=== PATIENT | male | born 1945 | race Caucasian/White ===

== ENCOUNTER 2017-09-27 20:34 | Observation (INO) ==
--- NOTE | 2017-09-27 21:08 | Emergency Department Note ---
Disposition Clinical Impression: Cardiac dysrhythmia Qualifiers: Arrhythmia type: other cardiac arrhythmia Qualified Code(s): I49.8 - Other specified cardiac arrhythmias Disposition: Still a Patient Referrals: Lola Whiteside CNP [Primary Care Provider] - General Adult HPI - General Chief complaint: ED Shortness of Breath/Dyspnea Stated complaint: SHANNON Time Seen by Provider: 09/27/17 20:42 Source: patient - History of Present Illness Pain Scale: 0 - Related Data Home Medications Medication Instructions Recorded Confirmed Aspirin Enteric Coated [Aspirin EC] 81 mg PO QAM 01/24/15 09/22/17 Lisinopril [Zestril] 10 mg PO QAM 01/24/15 09/22/17 Lovastatin [Mevacor] 40 mg PO QAM 01/24/15 09/22/17 Omeprazole [PriLOSEC] 20 mg PO QAM 01/24/15 09/22/17 Albuterol Sulfate [Ventolin Hfa] 2 puff IH Q4H PRN 09/15/17 09/22/17 Cilostazol [Pletal] 100 mg PO BID 09/15/17 09/22/17 Clopidogrel [Plavix] 75 mg PO DAILY 09/15/17 09/22/17 Diltiazem CD (24hr) [Cardizem CD] 240 mg PO DAILY 09/15/17 09/22/17 Fluticasone/Salmeterol [Advair 1 puff IH BID 09/15/17 09/22/17 250-50 Diskus] Glimepiride [Amaryl] 2 mg PO DAILY 09/15/17 09/22/17 Liraglutide [Victoza 3-Rich] 1.2 unit IJ DAILY 09/15/17 09/22/17 Sitagliptin Phosphate [Januvia] 50 mg PO DAILY 09/15/17 09/22/17 Tamsulosin HCl [Flomax] 0.4 mg PO DAILY 09/15/17 09/22/17 amLODIPine [Norvasc] 5 mg PO DAILY 09/15/17 09/22/17 Previous Rx's Medication Instructions Recorded Metoprolol [Lopressor] 25 mg PO BID #60 tablet 02/06/15 Ticagrelor [Brilinta] 90 mg PO BID #60 tablet 02/06/15 Clindamycin [Cleocin] 150 mg PO Q6HR #20 capsule 09/15/17 HYDROcodone/Acet 7.5/325 mg [[place] 1 tab PO Q4-6H PRN 7 Days #25 09/15/17 7.5-325 mg] tablet Allergies Allergy/AdvReac Type Severity Reaction Status Date / Time Penicillins Allergy Rash Verified 09/22/17 11:01 Past Medical History - Past Medical History Medical history: Reports: arthritis, cancer, COPD, coronary artery disease, diabetes, hyperlipidemia, hypertension, myocardial infarction, renal disease Surgical history: Reports: angioplasty/stent Psychiatric history: Reports: no psych history - Social History Smoking Status: Former smoker Smokeless Tobacco Status: No Alcohol use: Reports: none Drug use: Reports: none Physical Exam - General General appearance: alert, in no apparent distress Course - Reevaluation(s) Reevaluation #1: Attestation Note I examined this patient and my medical decision-making was reviewed with the Resident Physician, LISA BURNS. I agree with the documented findings, disposition and treatment plan as described except to the extent set forth below. I have personally performed a face to face evaluation on this patient. I have reviewed and agree with the care plan. Briefly: 71-year-old male status post a polypectomy by Dr. Kay from ENT about [address] Kay after getting an EKG preoperatively stated that he needed "a pacemaker the next day". He was unable to follow up on. He learned that his polyp was cancerous and has gone to the [facility] instead of seeing cardiology. Patient complains of some shortness of breath. He has some dropped beats here. He is awake and alert GCS 15. Physical examination is essentially benign. Patient will undergo lab work and imaging and admission is anticipated. Disposition pending Time: 21:06 Vital Signs Temperature 97.7 F 09/27/17 20:36 Pulse Rate 89 09/27/17 20:36 Respiratory Rate 20 09/27/17 20:36 Blood Pressure 156/72 09/27/17 20:36 O2 Sat by Pulse Oximetry 97 09/27/17 20:36 Temperature 97.7 F 09/27/17 20:36 Pulse Rate 89 09/27/17 20:36 Respiratory Rate 20 09/27/17 20:36 Blood Pressure 156/72 09/27/17 20:36 O2 Sat by Pulse Oximetry 97 09/27/17 20:36 Oxygen Delivery Oxygen Delivery Room Air
--- NOTE | 2017-09-27 21:14 | Emergency Department Note ---
Disposition Clinical Impression: Mobitz (type) II atrioventricular block, Dizziness Disposition: Admitted As Inpatient Condition: Good Referrals: Lola Whiteside CNP [Primary Care Provider] - Forms: ED Satisfaction Letter SOB HPI - General Chief Complaint: ED Shortness of Breath/Dyspnea Stated Complaint: SHANNON Time Seen by Provider: 09/27/17 20:42 Source: patient Mode of arrival: private vehicle Limitations: no limitations Nursing Notes Reviewed: Yes Vital Signs Reviewed: Yes - History of Present Illness 71-year-old male history of coronary artery disease with 3 stents, atrial fibrillation, hypertension, hyperlipidemia, COPD, obstructive sleep apnea, laryngeal cancer who presents to the ER due to lightheadedness as well as shortness of breath. Patient reports intermittent lightheadedness for the last week in duration. States that it happens intermittently. No syncopal episodes. He was recently operated on for a laryngeal mass which she was told was cancer. He states during that time he did an EKG and he was told he needed a pacemaker placed. He scheduled an appointment for the next day however he was unable to go. He denies any chest pain. No recent illnesses. No other complaints. Pt Subjective Complaint: shortness of breath Onset (ago): day(s) Improves with: nothing Worsens with: nothing Known history of: COPD Associated symptoms: Reports: cough. Denies: chest pain, fever Treatment prior to arrival: none Cough present: No - Related Data Home oxygen amount: none Home Medications Medication Instructions Recorded Confirmed Aspirin Enteric Coated [Aspirin EC] 81 mg PO QAM 01/24/15 09/22/17 Lisinopril [Zestril] 10 mg PO QAM 01/24/15 09/22/17 Lovastatin [Mevacor] 40 mg PO QAM 01/24/15 09/22/17 Omeprazole [PriLOSEC] 20 mg PO QAM 01/24/15 09/22/17 Albuterol Sulfate [Ventolin Hfa] 2 puff IH Q4H PRN 09/15/17 09/22/17 Cilostazol [Pletal] 100 mg PO BID 09/15/17 09/22/17 Clopidogrel [Plavix] 75 mg PO DAILY 09/15/17 09/22/17 Diltiazem CD (24hr) [Cardizem CD] 240 mg PO DAILY 09/15/17 09/22/17 Fluticasone/Salmeterol [Advair 1 puff IH BID 09/15/17 09/22/17 250-50 Diskus] Glimepiride [Amaryl] 2 mg PO DAILY 09/15/17 09/22/17 Liraglutide [Victoza 3-Rich] 1.2 unit IJ DAILY 09/15/17 09/22/17 Sitagliptin Phosphate [Januvia] 50 mg PO DAILY 09/15/17 09/22/17 Tamsulosin HCl [Flomax] 0.4 mg PO DAILY 09/15/17 09/22/17 amLODIPine [Norvasc] 5 mg PO DAILY 09/15/17 09/22/17 Previous Rx's Medication Instructions Recorded Metoprolol [Lopressor] 25 mg PO BID #60 tablet 02/06/15 Ticagrelor [Brilinta] 90 mg PO BID #60 tablet 02/06/15 Clindamycin [Cleocin] 150 mg PO Q6HR #20 capsule 09/15/17 HYDROcodone/Acet 7.5/325 mg [[place] 1 tab PO Q4-6H PRN 7 Days #25 09/15/17 7.5-325 mg] tablet Allergies Allergy/AdvReac Type Severity Reaction Status Date / Time Penicillins Allergy Rash Verified 09/22/17 11:01 All systems ED: reviewed and negative except as stated. Constitutional: Denies: fever Cardiovascular: Denies: chest pain Respiratory: Reports: dyspnea. Denies: cough Gastrointestinal: Denies: abdominal pain, nausea, vomiting Neurological: Reports: other (Lightheaded) Past Medical History - Past Medical History Attestation: Yes The following information was validated with the patient. Source: patient Medical history: Reports: arthritis, cancer, COPD, coronary artery disease, diabetes, hyperlipidemia, hypertension, myocardial infarction, renal disease Surgical history: Reports: angioplasty/stent Psychiatric history: Reports: no psych history - Social History Smoking Status: Former smoker Smokeless Tobacco Status: No Alcohol use: Reports: none Drug use: Reports: none Physical Exam - General Limitations: no limitations General appearance: alert, in no apparent distress - Head Head exam: atraumatic, normocephalic - Eye Eye exam: Present: normal appearance - ENT ENT exam: normal exam - Neck Neck exam: Present: normal inspection, full ROM - Chest Chest inspection: Present: normal inspection, symmetric chest wall rise - Respiratory Respiratory exam: Present: normal lung sounds bilaterally - Cardiovascular Cardiovascular exam: Present: regular rate, normal rhythm, normal heart sounds, other (Dropping beats) - Abdominal Exam Abdominal exam: Present: soft, Non-Tender. Absent: tenderness - Extremities Exam Extremities exam: Present: normal inspection, full ROM - Expanded Upper Extremity Exam Shoulder exam: Present: normal inspection, full ROM Arm exam: Present: normal inspection, full ROM Elbow exam: Present: normal inspection, full ROM Forearm/Wrist exam: Present: normal inspection, full ROM Hand exam: Present: normal inspection, full ROM - Expanded Lower Extremity Exam Hip/Pelvis exam: Present: normal inspection, full ROM Upper leg exam: Present: normal inspection, full ROM Knee exam: Present: normal inspection, full ROM Lower leg exam: Present: normal inspection, full ROM Ankle exam: Present: normal inspection, full ROM Foot/toe exam: Present: normal inspection, full ROM - Neurological Exam Neurological exam: Present: other (Alert, GCS 15, nonfocal.) - Skin Skin exam: Present: warm, dry Course Course Narrative: Patient seen and examined. Rhythm strip demonstrates Mobitz type II. We will get an EKG, chest x-ray as well as labs including troponin. Cardiology consultation and admission. - Reevaluation(s) Reevaluation #1: Discussed results of findings including imaging labs with the patient and family. Agreeable with being admitted. - Consultations Consultation #1: I spoke with the on-call screener perfumer Dr. Glynn. Discussed the patient's history EKG imaging and labs. He is currently hemodynamically stable with a normal blood pressure. Request cardiology consultation and hospitalist admission. Vital Signs Temperature 97.7 F 09/27/17 20:36 Pulse Rate 89 09/27/17 20:36 Respiratory Rate 20 09/27/17 20:36 Blood Pressure 156/72 09/27/17 20:36 O2 Sat by Pulse Oximetry 97 09/27/17 20:36 Temperature 97.7 F 09/27/17 20:36 Pulse Rate 68 09/27/17 22:26 Respiratory Rate 16 09/27/17 22:26 Blood Pressure 125/67 09/27/17 22:26 O2 Sat by Pulse Oximetry 95 09/27/17 22:26 Oxygen Delivery Oxygen Delivery Room Air Shortness of Breath/Dyspnea - MDM Narrative Medical decision making narrative: 71-year-old male with dizziness for one week as well as shortness of breath. He was told he needed a pacemaker 1 week ago. He was unable to go and also was recently diagnosed with laryngeal cancer. EKG demonstrates Mobitz type II. Hemodynamically stable. Cardiology consulted. Admitted to the hospitalist service. - Lab Data Lab results reviewed: Yes I reviewed the patient's lab results. Result diagrams: 09/27/17 20:58 09/27/17 20:58 Lab Results 09/27/17 09/27/17 09/27/17 Range/Units 20:58 20:58 20:58 WBC 11.2 H (4.3-11.1) K/mcL RBC 4.35 (4.19-5.50) M/mcL Hgb 12.9 (12.9-16.9) g/dL Hct 35.9 L (37.5-50.1) % MCV 82.5 L (83.0-100.0) fL MCH 29.7 (28.0-33.3) pg MCHC 35.9 H (31.6-35.5) g/dL RDW 14.6 H (11.5-14.5) % Plt Count 289 (140-400) K/mcL MPV 10.4 (9.4-12.4) fL Immature Gran % 1.7 (0-4) % Seg Neutrophils % 76.2 % Lymphocytes % 14.5 % Monocytes % 5.6 % Eosinophils % 1.4 % Basophils % 0.6 % Neutrophils # 8.6 (1.6-8.9) K/mcL Lymphocytes # 1.6 (0.6-4.6) K/mcL Monocytes # 0.6 (0.0-1.3) K/mcL Eosinophils # 0.2 (0.0-0.6) K/mcL Basophils # 0.1 (0.0-0.2) K/mcL PT 11.9 (9.4-12.1) Seconds INR 1.1 Sodium 136 (136-145) mEq/L Potassium 3.8 (3.5-5.1) mEq/L Chloride 109 H (98-107) mEq/L Carbon Dioxide 18 L (23-29) mEq/L BUN 15 (8-23) mg/dL Creatinine 1.41 H (0.70-1.30) mg/dL Est GFR ( Amer) 60 (> 60) Est GFR (Non-Af Amer) 49 L (> 60) BUN/Creatinine Ratio 11 (6-26) Glucose 134 H (70-105) mg/dL Calculated Osmolality 285 (280-300) Calcium 9.8 (8.6-10.3) mg/dL Troponin I < 0.03 (< 0.04) ng/mL B-Natriuretic Peptide (Less than 100) pg/mL 09/27/17 Range/Units 20:58 WBC (4.3-11.1) K/mcL RBC (4.19-5.50) M/mcL Hgb (12.9-16.9) g/dL Hct (37.5-50.1) % MCV (83.0-100.0) fL MCH (28.0-33.3) pg MCHC (31.6-35.5) g/dL RDW (11.5-14.5) % Plt Count (140-400) K/mcL MPV (9.4-12.4) fL Immature Gran % (0-4) % Seg Neutrophils % % Lymphocytes % % Monocytes % % Eosinophils % % Basophils % % Neutrophils # (1.6-8.9) K/mcL Lymphocytes # (0.6-4.6) K/mcL Monocytes # (0.0-1.3) K/mcL Eosinophils # (0.0-0.6) K/mcL Basophils # (0.0-0.2) K/mcL PT (9.4-12.1) Seconds INR Sodium (136-145) mEq/L Potassium (3.5-5.1) mEq/L Chloride (98-107) mEq/L Carbon Dioxide (23-29) mEq/L BUN (8-23) mg/dL Creatinine (0.70-1.30) mg/dL Est GFR ( Amer) (> 60) Est GFR (Non-Af Amer) (> 60) BUN/Creatinine Ratio (6-26) Glucose (70-105) mg/dL Calculated Osmolality (280-300) Calcium (8.6-10.3) mg/dL Troponin I (< 0.04) ng/mL B-Natriuretic Peptide 24 (Less than 100) pg/mL - Radiology Data Radiology results reviewed: Yes I reviewed the patient's radiology results. Chest X-Ray 09/27/17 21:15 IMPRESSION: No acute abnormality. D/ / Donnie Mcgregor MD / Donnie Mcgregor MD Interpreting Provider: Donnie Mcgregor MD - EKG Data EKG attestation: Yes I reviewed and interpreted this EKG. EKG results narrative: EKG demonstrates sinus rhythm with prolonged MN interval with a rate of 81 bpm. Left axis deviation. Drop beat with type II Mobitz. No gross ST elevations or depressions. No acute ischemic findings. S.B.A.R. - S.B.A.R. Situation: Demographics, MOA Background: Presenting Complaint, Relevant PMH, Meds, & Allergies Assessment: Course and respsone to treatment, Exam Concerns, Patient/Family Expectation, Pertinant Lab Results Recommendation: Barrier(s) to disposition, Recommendation based on pending studies, treatments, or consults S.B.A.R. Report Given to: Dr. Belle
[2017-09-27 21:24] LABS: Basophils # 0.1 K/mcL (0.0-0.2); Basophils % 0.6 %; Eosinophils # 0.2 K/mcL (0.0-0.6); Eosinophils % 1.4 %; Hematocrit 35.9 % (37.5-50.1); Hemoglobin 12.9 g/dL (12.9-16.9); Immature Granulocytes % 1.7 % (0-4); Lymphocytes # 1.6 K/mcL (0.6-4.6); Lymphocytes % 14.5 %; Mean Corpuscular HGB Conc 35.9 g/dL (31.6-35.5); Mean Corpuscular Hemoglobin 29.7 pg (28.0-33.3); Mean Corpuscular Volume 82.5 fL (83.0-100.0); Mean Platelet Volume 10.4 fL (9.4-12.4); Monocytes # 0.6 K/mcL (0.0-1.3); Monocytes % 5.6 %; Neutrophils # 8.6 K/mcL (1.6-8.9); Platelet Count 289 K/mcL (140-400); Red Blood Count 4.35 M/mcL (4.19-5.50); Red Cell Distribution Width 14.6 % (11.5-14.5); Segmented Neutrophils % 76.2 %
[2017-09-27 21:29] LABS: INR 1.1; Prothrombin Time 11.9 Seconds (9.4-12.1)
[2017-09-27 21:45] LABS: BUN/Creatinine Ratio 11 (6-26); Blood Urea Nitrogen 15 mg/dL (8-23); Calcium 9.8 mg/dL (8.6-10.3); Carbon Dioxide 18 mEq/L (23-29); Chloride 109 mEq/L (98-107); Glucose 134 mg/dL (70-105); Osmolality,Calculated 285 (280-300); Potassium 3.8 mEq/L (3.5-5.1); Sodium 136 mEq/L (136-145); eGFR For African Americans 60 (> 60); eGFR For Non-African Americans 49 (> 60)
[2017-09-27 21:47] LABS: Troponin I < 0.03 ng/mL (< 0.04)
--- NOTE | 2017-09-27 23:05 | Internal Med History&Physical ---
<Feliberto Theodore - Last Filed: 09/27/17 23:55> Date of Encounter: 09/27/17 Time of Encounter: 23:04 Internal Medicine - H&P: HPI Chief complaint: Dizziness Admitted From: Emergency Dept History of present illness: Mr. Mar is a 71 year old male with history of coronary artery disease with 3 stents, atrial fibrillation, hypertension, hyperlipidemia, COPD, obstructive sleep apnea, laryngeal cancer presented to the emergency department tonight due to lightheadedness as well as shortness of breath. After the emergency department did the workup they diagnosed patient with a Mobitz type II heart block. Patient states the symptoms he had leading up to this event were increased dizziness as well as increasing shortness of breath. He never did complain of any chest pain. Said the dizziness only occurred when he stood up. He never had a syncopal episode did not fall and hit his head. Said the shortness of breath to be worse at night although patient does use a CPAP machine every night due to his VENKATESH and COPD. Does have 120 pack year smoking history. He did quit 3 years ago after he had his 3 stents placed in 2014. Patient said he did come to the emergency department approximately 2 weeks ago due to having trouble swallowing there they did a scope and found a laryngeal mass which he was told was cancer. He states during that time they did an EKG and told him that he needed a pacemaker. He scheduled an appointment with cardiology but was unable to go to a due to this new diagnosis of cancer patient felt like the cancer was more beneficial to be worked up in his pacemaker placement. He is unsure what diagnosis he had when he was told to get the pacemaker. He has no other recent illnesses. Patient otherwise has no complaints today. Past Med Surg Social Fam HX - Past Medical History Medical history: arthritis, cancer, COPD, coronary artery disease, diabetes, hyperlipidemia, hypertension, myocardial infarction, renal disease Psychiatric history: no psych history - Past Surgical History Surgical History: angioplasty/stent - Social History Smoking Status: Former smoker Smokeless Tobacco Status: No Alcohol use: none Drug use: none - Family History Father Living Status: Hx Family Cardiac Disorders: No Hx Family Respiratory Disorders: No Hx Family Cancer: No Hx Family GI Disorders: No Hx Family Endocrine Disorder: No Hx Family Neuromuscular Disorders: No Hx Family Neurologic Disorders: No Hx Family HEENT Disorders: No Hx Family Autoimmune Disorders: No Mother Living Status: Hx Family Cardiac Disorders: Yes (Heart attack, hypertension) Hx Family Respiratory Disorders: No Hx Family Cancer: No Hx Family GI Disorders: No Hx Family Endocrine Disorder: Yes (diabetes) Hx Family Neuromuscular Disorders: No Hx Family Neurologic Disorders: No Hx Family HEENT Disorders: No Hx Family Autoimmune Disorders: No Internal Medicine - H&P: Meds Aspirin Enteric Coated [Aspirin EC] 81 mg PO QAM 01/24/15 [History] Lisinopril [Zestril] 10 mg PO QAM 01/24/15 [History] Lovastatin [Mevacor] 40 mg PO QAM 01/24/15 [History] Omeprazole [PriLOSEC] 20 mg PO QAM 01/24/15 [History] Metoprolol [Lopressor] 25 mg PO BID #60 tablet 02/06/15 [Rx] Ticagrelor [Brilinta] 90 mg PO BID #60 tablet 02/06/15 [Rx] Albuterol Sulfate [Ventolin Hfa] 2 puff IH Q4H PRN 09/15/17 [History] Cilostazol [Pletal] 100 mg PO BID 09/15/17 [History] Clindamycin [Cleocin] 150 mg PO Q6HR #20 capsule 09/15/17 [Rx] Clopidogrel [Plavix] 75 mg PO DAILY 09/15/17 [History] Diltiazem CD (24hr) [Cardizem CD] 240 mg PO DAILY 09/15/17 [History] Fluticasone/Salmeterol [Advair 250-50 Diskus] 1 puff IH BID 09/15/17 [History] Glimepiride [Amaryl] 2 mg PO DAILY 09/15/17 [History] HYDROcodone/Acet 7.5/325 mg [Kila 7.5-325 mg] 1 tab PO Q4-6H PRN 7 Days #25 tablet 09/15/17 [Rx] Liraglutide [Victoza 3-Rich] 1.2 unit IJ DAILY 09/15/17 [History] Sitagliptin Phosphate [Januvia] 50 mg PO DAILY 09/15/17 [History] Tamsulosin HCl [Flomax] 0.4 mg PO DAILY 09/15/17 [History] amLODIPine [Norvasc] 5 mg PO DAILY 09/15/17 [History] 3 Allergy/AdvReac Type Severity Reaction Status Date / Time Penicillins Allergy Rash Verified 09/22/17 11:01 All Systems PM: A 10-system review of systems was performed and is negative for pertinent findings except as documented above in the HPI. - Constitutional Constitutional: no fever(s), no falls, no night sweats, no weakness, no weight gain, no weight loss - EENT Eyes: no blurry vision, no change in vision, no loss of vision Ears: no ear discharge, no ear pain, no tinnitus Nose, mouth and throat: no dysphagia, no nasal discharge, no neck pain, no sore throat - Cardiovascular Cardiovascular ROS IM: lightheadedness, no chest pain, no diaphoresis, no dyspnea, no edema, no palpitations, no syncope - Respiratory Respiratory: no cough, no dyspnea, no wheezing, no excessive phlegm production - Gastrointestinal Gastrointestinal: no abdominal pain, no diarrhea, no hematemesis, no hematochezia, no melena, no nausea, no vomiting - Musculoskeletal Musculoskeletal ROS IM: no numbness, no tingling - Integumentary Integumentary IM: no rash, no unusual bruising - Neurological Neurological ROS: dizziness, no confusion, no convulsions, no focal weakness, no frequent falls, no headache(s), no numbness, no tingling, no tremor(s) - Hematologic/Lymphatic Hematologic/Lymphatic: no easy bleeding, no easy bruising, no lymphadenopathy - Constitutional Vitals: Temp Pulse Resp BP Pulse Ox 97.7 F 68 16 125/67 95 09/27/17 20:36 09/27/17 22:26 09/27/17 22:26 09/27/17 22:26 09/27/17 22:26 General appearance: Present: A&O X 3, pleasant, no acute distress - Head Head exam: Present: atraumatic, normocephalic - Eye Eye exam: Present: PERRL, conjuntiva pink, sclera anicteric Pupils: Present: PERRL - Neck Neck exam general surgery: Present: supple, trachea midline. Absent: lymphadenopathy - Respiratory Respiratory exam: Present: CTAB. Absent: accessory muscle use, rales, rhonchi, wheezes - Cardiovascular Cardiovascular exam: Present: RRR, +S1, +S2. Absent: diastolic murmur, gallop, rubs, systolic murmur - GI/Abdominal GI/Abdominal exam: Present: normal bowel sounds, soft, no peritoneal signs. Absent: distended, tenderness - Extremities Exam Extremities exam: Present: warm, radial pulses palpable and symmetrical. Absent : calf tenderness, cyanotic, pedal edema - Neurological Exam Neurological exam: Present: CN II-XII intact, oriented X3, no focal deficits. Absent: pronater drift, facial droop, speech deficit - Skin Skin exam: Present: dry, intact Internal Med - H&P Results - Labs CBC & Chem 7: 09/27/17 20:58 09/27/17 20:58 Labs: Short CBC 09/27/17 Range/Units 20:58 WBC 11.2 H (4.3-11.1) K/mcL Hgb 12.9 (12.9-16.9) g/dL Hct 35.9 L (37.5-50.1) % Plt Count 289 (140-400) K/mcL Neutrophils # 8.6 (1.6-8.9) K/mcL BMP 09/27/17 20:58 Sodium 136 Potassium 3.8 Chloride 109 H Carbon Dioxide 18 L BUN 15 Creatinine 1.41 H Glucose 134 H Calcium 9.8 Cardiac Enzymes 09/27/17 Range/Units 20:58 Troponin I < 0.03 (< 0.04) ng/mL - EKG Data -: EKG Interpreted by Myself EKG shows normal: sinus rhythm (Mobitz type II heart block with varying conduction rates. From 5-20 beats per episode), axis - EKG Data Prior EKG available for review: yes When compared to previous EKG: there is no significant change Interpretation IM: other (Mobitz type II heart block with varying conduction) - Impressions ITS Impressions Chest X-Ray 09/27/17 21:15 IMPRESSION: No acute abnormality. D/ / Donnie Mcgregor MD / Donnie Mcgregor MD Interpreting Provider: Donnie Mcgregor MD - Assessment and plan (1) Mobitz (type) II atrioventricular block Current Visit: Yes Status: Acute Assessment and plan: Patient presented to the emergency department with dizziness. EKGs done in the emergency department did show a type II AV block. This was known by previous cardiology reports. He was said to have a pacer placed. Patient was unable to get his pacer placed due to newly diagnosed laryngeal cancer. The emergency department team and Dr. Belle to the admitting physician both spoke with the on-call blanket washer who said there is nothing to do at this time as patient is hemodynamically stable with a normal blood pressure 140/90 and a heart rate of 80. He felt the patient needs to go to a telemetry bed and possibly progressive care unit as the patient did become hypotensive or hemodynamically unstable will need a transvenous pacer to be placed. Cardiology said they will consult with the patient and see them in the morning. Place patient on telemetry Continue getting daily labs for any abnormalities. Consult cardiology for recommendations (2) Dizziness Current Visit: Yes Status: Acute Assessment and plan: Dizziness most likely is due to patient's Mobitz type II AV block. Patient has no syncopal episodes is not fell and hit his head there is no reason to do a CT based on my exam in the emergency department exam. Patient is alert and oriented he is able stand on his own. He is no acute or focal neurological deficits. Continue with cardiology consult. (3) Coronary artery disease Current Visit: No Status: Acute Assessment and plan: Patient does have history of CAD he had 3 stents placed in 2014 with no complications since then. We will continue aspirin, Norvasc, diltiazem, Plavix. Qualifiers: Coronary Disease-Associated Artery/Lesion type: unspecified vessel or lesion type [place] vs. transplanted heart: [place] heart Associated angina: without angina Qualified Code(s): I25.10 - Atherosclerotic heart disease of [place] coronary artery without angina pectoris (4) COPD (chronic obstructive pulmonary disease) Current Visit: No Status: Chronic Assessment and plan: Patient does have history of COPD as he has [id number] history. He did quit 3 years ago. We will continue CPAP at night as as when he normally uses Continue nebs as needed. Continue steroid inhaler as needed. Qualifiers: COPD type: emphysema Emphysema type: unspecified Qualified Code(s): J43.9 - Emphysema, unspecified (5) Diabetes mellitus Current Visit: No Status: Chronic Assessment and plan: Continue Januvia will start insulin sliding scale due to patient being on Victoza which we do not have here. We will continue amaryl Qualifiers: Diabetes mellitus type: type 2 Diabetes mellitus termite control representative insulin use: without termite control representative use Diabetes mellitus complication status: without complication Qualified Code(s): E11.9 - Type 2 diabetes mellitus without complications (6) HLD (hyperlipidemia) Current Visit: No Status: Chronic Assessment and plan: Continue home meds Qualifiers: Hyperlipidemia type: unspecified Qualified Code(s): E78.5 - Hyperlipidemia , unspecified (7) HTN (hypertension) Current Visit: No Status: Chronic Assessment and plan: Continue home meds Qualifiers: Hypertension type: essential hypertension Qualified Code(s): I10 - Essential (primary) hypertension (8) DVT prophylaxis Current Visit: No Status: Acute Assessment and plan: subcutaneous heparin - Time Spent With Patient Total time spent is greater than 50% in coordination of care (as documented) at patient's floor/unit and/or counseling patient: <Althea De Paz - Last Filed: 09/28/17 00:36> Date of Encounter: 09/28/17 Internal Medicine - H&P: HPI History of present illness: Mr. Mar is a 71 year old male All Systems PM: A 10-system review of systems was performed and is negative for pertinent findings except as documented above in the HPI. - Constitutional Vitals: Temp Pulse Resp BP Pulse Ox 97.7 F 68 14 119/60 95 09/27/17 20:36 09/27/17 22:26 09/27/17 23:29 09/27/17 23:29 09/27/17 22:26 Internal Med - H&P Results - Labs CBC & Chem 7: 09/27/17 20:58 09/27/17 20:58 - Attending Attestation I have seen and examined this patient independently. I have discussed with resident physician Dr. Theodore regarding the management plan. Agree with the documentation. - Time Spent With Patient Total time spent is greater than 50% in coordination of care (as documented) at patient's floor/unit and/or counseling patient:
[2017-09-27] MEDS ORDERED: Naloxone 0.4 MG/ML INJ IVP PRN (23:19)
[2017-09-27] MEDS ORDERED: Albuterol 2.5 MG/3 ML NEBULIZER IH PRN (23:26)
[2017-09-27] MEDS ORDERED: *HR* Dextrose 50 % in Water (Syg) 50 ML SYRINGE IVP PRN (23:33)
[2017-09-27] MEDS ORDERED: Dextrose Gel 15 GM/37.5 ML TUBE PO PRN ×2 (23:33)
[2017-09-27] MEDS ORDERED: D5% in Water 1,000 ML IVC PRN (23:33)
[2017-09-28 00:53] LABS: Basophils # 0.1 K/mcL (0.0-0.2); Basophils % 0.5 %; Eosinophils # 0.2 K/mcL (0.0-0.6); Eosinophils % 1.6 %; Hematocrit 36.4 % (37.5-50.1); Immature Granulocytes % 1.4 % (0-4); Lymphocytes % 19.7 %; Mean Corpuscular HGB Conc 35.7 g/dL (31.6-35.5); Mean Corpuscular Hemoglobin 29.5 pg (28.0-33.3); Mean Corpuscular Volume 82.5 fL (83.0-100.0); Mean Platelet Volume 10.3 fL (9.4-12.4); Monocytes # 0.6 K/mcL (0.0-1.3); Monocytes % 5.9 %; Neutrophils # 7.2 K/mcL (1.6-8.9); Platelet Count 270 K/mcL (140-400); Red Blood Count 4.41 M/mcL (4.19-5.50); Red Cell Distribution Width 14.6 % (11.5-14.5); Segmented Neutrophils % 70.9 %
[2017-09-28 00:59] LABS: INR 1.1; Prothrombin Time 11.7 Seconds (9.4-12.1)
[2017-09-28 01:02] LABS: Activated Partial Thrombo Time 29.1 Seconds (26.0-36.0)
[2017-09-28 01:13] LABS: Calcium 9.7 mg/dL (8.6-10.3); Potassium 3.8 mEq/L (3.5-5.1)
[2017-09-28 01:14] LABS: Magnesium 2.3 mg/dL (1.6-2.6); Phosphorous 3.6 mg/dL (2.7-4.5)
[2017-09-28] MEDS: Insulin LISPRO 300 UNITS/3 ML VIAL SQ SCH ×4 (03:56→17:42)
[2017-09-28] MEDS ORDERED: Insulin LISPRO 300 UNITS/3 ML VIAL SQ SCH (06:00)
[2017-09-28] MEDS ORDERED: *HR* Heparin 5,000 UNIT/ML VIAL SQ SCH (06:00)
[2017-09-28] MEDS ORDERED: *HR* Glimepiride 2 MG TABLET PO SCH (08:00)
--- NOTE | 2017-09-28 08:54 | Cardiology Consult Note ---
Addendum entered and electronically signed by Dave Luis CNP 09/28/17 10:27 : Discussed with Dr. Gonzalez, will consult EP for AV block. Patient also noted to have several beats NSVT at night. TTE pending. Last [facility] 2014 he received PTCA and MINERVA to the LAD. There was 40% stenosis in the LMCA , 95% stenosis 1st DX artery, 30% stenosis mLCX artery, pRCA with 99% stenosis and mRCA with 100% stenosis. There was left to right collaterals. He denies chest pain. Troponin negative. Original Note: <Dave Luis - Last Filed: 09/28/17 08:50> Date of Encounter: 09/28/17 Time of Encounter: 08:50 Assessment and Plan (1) Mobitz (type) II atrioventricular block Current Visit: Yes Status: Acute EKG and telemetry shows intermittent mobitz type II. Bradycardia with HR as low as 33 bpm and 2.3 second pauses seen. C/o increasing intermittent dizziness. Avoid AV christian blocking agents. Last TTE 01/2015- EF 50%, mild LVH, mild RAYMOND, No significant valvular disease. Check TTE and TSH. Will consider EP consult. (2) Atrial fibrillation Current Visit: No Status: Acute Reported history of PAF. Current SR-SB with mobitz type II. Hold cardizem for now. Reports stopping coumadin in the past on his own. CHADS VASc=3 for HTN, Age, and CAD. I discussed re-starting AC in the future to decrease CVA risk. He is considering. Qualifiers: Atrial fibrillation type: paroxysmal Qualified Code(s): I48.0 - Paroxysmal atrial fibrillation (3) Coronary artery disease Current Visit: No Status: Acute H/o multiple DE and PCI to the LAD in 2014. Continue brilinta, asa, statin. No bb due to AV block. Qualifiers: Coronary Disease-Associated Artery/Lesion type: [place] artery [place] vs. transplanted heart: [place] heart Associated angina: without angina Qualified Code(s): I25.10 - Atherosclerotic heart disease of [place] coronary artery without angina pectoris Discussion w patient/family: The assessment and plan as outlined above was discussed with the patient and/or family members who expressed understanding and agreement. All questions were answered. Thank you for involving us in the care of your patient. Please call with any questions. History of Present Illness Consult date: 09/28/17 Requesting physician: Althea De Paz Consult reason: mobitz type II AV block Chief complaint: dizziness, lightheadedness History of present illness: Mr. Mar is a 71 year old male with past medical history significant for CAD s/p DE and previous PCI, atrial fibrillation, HTN, HLD, prior toacco abuse, COPD , and recently diagnosed laryngeal cancer. He presented with the c/o intermittent dizziness and lightheadedness. C/o on going symptoms of lightheadedness with standing or position change. Two days ago he was driving when he developed dizziness. Denies syncope. C/o increasing SOB and using his c- pap during daytime hours. Denies fever or chills. Denies chest pain. Reports he was found to have abnormal EKG after recent laryngeal tumor removal and was referred to cardiology at that time. Past Med Surg Social Fam HX - Past Medical History Medical history: arthritis, cancer, COPD, coronary artery disease, diabetes, hyperlipidemia, hypertension, myocardial infarction, renal disease Psychiatric history: no psych history - Past Surgical History Surgical History: angioplasty/stent - Social History Smoking Status: Former smoker Smokeless Tobacco Status: No Alcohol use: none Drug use: none - Family History Father Living Status: Hx Family Cardiac Disorders: No Hx Family Respiratory Disorders: No Hx Family Cancer: No Hx Family GI Disorders: No Hx Family Endocrine Disorder: No Hx Family Neuromuscular Disorders: No Hx Family Neurologic Disorders: No Hx Family HEENT Disorders: No Hx Family Autoimmune Disorders: No Mother Living Status: Hx Family Cardiac Disorders: Yes (Heart attack, hypertension) Hx Family Respiratory Disorders: No Hx Family Cancer: No Hx Family GI Disorders: No Hx Family Endocrine Disorder: Yes (diabetes) Hx Family Neuromuscular Disorders: No Hx Family Neurologic Disorders: No Hx Family HEENT Disorders: No Hx Family Autoimmune Disorders: No Medications and Allergies Aspirin Enteric Coated [Aspirin EC] 81 mg PO QAM 01/24/15 [History] Albuterol Sulfate [Ventolin Hfa] 2 puff IH Q4H PRN 09/15/17 [History] Cilostazol [Pletal] 100 mg PO BID 09/15/17 [History] Clopidogrel [Plavix] 75 mg PO DAILY 09/15/17 [History] Diltiazem CD (24hr) [Cardizem CD] 240 mg PO DAILY 09/15/17 [History] Glimepiride [Amaryl] 2 mg PO DAILY 09/15/17 [History] Liraglutide [Victoza 3-Rich] 1.2 unit IJ DAILY 09/15/17 [History] Sitagliptin Phosphate [Januvia] 50 mg PO DAILY 09/15/17 [History] Tamsulosin HCl [Flomax] 0.4 mg PO DAILY 09/15/17 [History] amLODIPine [Norvasc] 5 mg PO DAILY 09/15/17 [History] Cyanocobalamin (Vitamin B-12) [Vitamin B12] 1,000 mcg PO QWEEK 09/28/17 [History ] Ergocalciferol (VITAMIN D2) [Vitamin D2] 50,000 unit PO QWEEK 09/28/17 [History] Ferrous Sulfate [Iron] 325 mg PO DAILY 09/28/17 [History] Losartan Potassium [Cozaar] 100 mg PO DAILY 09/28/17 [History] Lovastatin 40 mg PO DAILY 09/28/17 [History] Omeprazole [PriLOSEC] 20 mg PO DAILY 09/28/17 [History] 3 Allergy/AdvReac Type Severity Reaction Status Date / Time Penicillins Allergy Rash Verified 09/28/17 09:28 All Systems Review: The remainder of the systems were reviewed and are negative Physical Examination Vital Signs, Last 4 Hours Temp Pulse Resp BP Pulse Ox 09/28/17 06:44 98.0 F 67 18 133/74 95 General: Conversant, No Apparent Distress HEENT: Atraumatic, Normocephaly, Mucus Membranes Moist Neck: No JVD, Normal carotid pulses Cardiac: Reg Rate and Rhythm, Normal S1 and S2, No Murmur Lungs: Normal Breath Sounds, No Wheeze, Rales, Rhonchi Neuro: Alert and responsive, No focal deficits noted Abdomen: Soft, Non-Tender Skin: No rashes noted on visualized skin Musculoskeletal: No Chest Wall Tenderness Extremities: No Clubbing, No Cyanosis, No Edema, Normal Pulses Results 09/28/17 00:41 09/28/17 00:41 Lab Results 09/28/17 09/28/17 09/28/17 00:41 00:41 00:41 WBC 10.2 Hgb 13.0 Hct 36.4 L Plt Count 270 INR 1.1 APTT 29.1 Sodium 137 Potassium 3.8 Chloride 110 H Carbon Dioxide 20 L BUN 14 Creatinine 1.43 H Glucose 105 Calcium 9.7 Magnesium 09/28/17 00:41 WBC Hgb Hct Plt Count INR APTT Sodium Potassium Chloride Carbon Dioxide BUN Creatinine Glucose Calcium Magnesium 2.3 - Imaging and Cardiology Echo: pending Cardiac cath: report reviewed - EKG Interpretation EKG results cardiology: personally reviewed Consult Discharge Plan - Plan Referrals: Bertha Plunkett MD [Partnered Physician] - 10/06/17 9:15 am () Lola Whiteside CNP [Primary Care Provider] - <Karlie Gonzalez - Last Filed: 09/28/17 12:17> Date of Encounter: 09/28/17 - Attending Attestation 71 YOM with h/o CAD s/p PCI of the LAD 2014 found to have 40% Left Main disease but was FFR unremarkable. Last few months has been complaining of worsening MURPHY and dizziness with NSVT/conduction abnormalities on tele. Possible unstable angina with left main disease as culprit, LHC is reasonable. Assessment and Plan Discussion w patient/family: The assessment and plan as outlined above was discussed with the patient and/or family members who expressed understanding and agreement. All questions were answered. Thank you for involving us in the care of your patient. Please call with any questions. History of Present Illness History of present illness: Mr. Mar is a 71 year old male All Systems Review: The remainder of the systems were reviewed and are negative Physical Examination Vital Signs, Last 4 Hours Temp Pulse Resp BP Pulse Ox 09/28/17 11:33 98.2 F 87 18 150/87 99 09/28/17 10:57 16 99 Results 09/28/17 00:41 09/28/17 00:41 Lab Results 09/28/17 09/28/17 09/28/17 00:41 00:41 00:41 WBC 10.2 Hgb 13.0 Hct 36.4 L Plt Count 270 INR 1.1 APTT 29.1 Sodium 137 Potassium 3.8 Chloride 110 H Carbon Dioxide 20 L BUN 14 Creatinine 1.43 H Glucose 105 Calcium 9.7 Magnesium TSH 09/28/17 09/28/17 00:41 09:20 WBC Hgb Hct Plt Count INR APTT Sodium Potassium Chloride Carbon Dioxide BUN Creatinine Glucose Calcium Magnesium 2.3 TSH 0.724
[2017-09-28] MEDS ORDERED: Diltiazem CD (24hr) 240 MG CAPSULE PO SCH (09:00)
[2017-09-28] MEDS ORDERED: amLODIPine 5 MG TABLET PO SCH (09:00)
[2017-09-28] MEDS ORDERED: Aspirin 81 MG TAB.CHEW PO SCH (09:00)
[2017-09-28] MEDS ORDERED: *HR* SitaGLIPtin 25 MG TABLET PO SCH (09:00)
[2017-09-28 10:28] LABS: Estimated Average Glucose 148 mg/dl; Hemoglobin A1C 6.8 %
[2017-09-28] MEDS: Budesonide/Formoterol 80/4.5 MDI IH SCH ×2 (10:56→20:08)
--- NOTE | 2017-09-28 13:11 | Internal Med Progress Note ---
Date of Encounter: 09/28/17 Time of Encounter: 13:09 - Assessment and plan (1) Symptomatic bradycardia Current Visit: Yes Status: Acute Assessment and plan: Mobitz II AV block Hr 33 with NSVT Cardizem on hold Cardiology to consider C today, will consider PPM if needed Telemetry (2) Mobitz (type) II atrioventricular block Current Visit: Yes Status: Acute (3) Atrial fibrillation Current Visit: No Status: Acute Assessment and plan: Hx of PAF CHADS VASc=3 Qualifiers: Atrial fibrillation type: paroxysmal Qualified Code(s): I48.0 - Paroxysmal atrial fibrillation (4) Coronary artery disease Current Visit: No Status: Acute Assessment and plan: Hx of CAD with stents Continue atorvastatin, Plavix, ASA Qualifiers: Coronary Disease-Associated Artery/Lesion type: [place] artery [place] vs. transplanted heart: [place] heart Associated angina: without angina Qualified Code(s): I25.10 - Atherosclerotic heart disease of [place] coronary artery without angina pectoris (5) COPD (chronic obstructive pulmonary disease) Current Visit: No Status: Chronic Assessment and plan: no exacerbation Qualifiers: COPD type: emphysema Emphysema type: unspecified Qualified Code(s): J43.9 - Emphysema, unspecified (6) HTN (hypertension) Current Visit: No Status: Chronic Assessment and plan: stop lisinopril may resume losartan and amlodipine Qualifiers: Hypertension type: essential hypertension Qualified Code(s): I10 - Essential (primary) hypertension - Time Spent With Patient Total time spent is greater than 50% in coordination of care (as documented) at patient's floor/unit and/or counseling patient: - Subjective Interval history: denies any CP or SOB at the moment, was feeling dizzy before, no fever, no dysuria or diarrhea - Constitutional Vitals: Temp Pulse Resp BP Pulse Ox 98.2 F 87 18 150/87 99 09/28/17 11:33 09/28/17 11:33 09/28/17 11:33 09/28/17 11:33 09/28/17 11:33 General appearance: Present: A&O X 3, pleasant, no acute distress - Head Head exam: Present: atraumatic, normocephalic - Eye Eye exam: Present: PERRL, conjuntiva pink, sclera anicteric Pupils: Present: PERRL - Neck Neck exam general surgery: Present: supple, trachea midline. Absent: lymphadenopathy - Respiratory Respiratory exam: Present: CTAB. Absent: accessory muscle use, rales, rhonchi, wheezes - Cardiovascular Cardiovascular exam: Present: RRR, +S1, +S2. Absent: diastolic murmur, gallop, rubs, systolic murmur - GI/Abdominal GI/Abdominal exam: Present: normal bowel sounds, soft, no peritoneal signs. Absent: distended, tenderness - Extremities Exam Extremities exam: Present: warm, radial pulses palpable and symmetrical. Absent : calf tenderness, cyanotic, pedal edema - Neurological Exam Neurological exam: Present: CN II-XII intact, oriented X3, no focal deficits. Absent: pronater drift, facial droop, speech deficit - Skin Skin exam: Present: dry, intact Internal Medicine: Result - Labs CBC & Chem 7: 09/28/17 00:41 09/28/17 00:41 Labs: Short CBC 09/28/17 Range/Units 00:41 WBC 10.2 (4.3-11.1) K/mcL Hgb 13.0 (12.9-16.9) g/dL Hct 36.4 L (37.5-50.1) % Plt Count 270 (140-400) K/mcL Neutrophils # 7.2 (1.6-8.9) K/mcL BMP 09/28/17 00:41 Sodium 137 Potassium 3.8 Chloride 110 H Carbon Dioxide 20 L BUN 14 Creatinine 1.43 H Glucose 105 Calcium 9.7 - ABG Interpretation ABG results: PT/INR, D-dimer PT 11.7 Seconds (9.4-12.1) 09/28/17 00:41 Consult Discharge Plan - Plan Referrals: Bertha Plunkett MD [Partnered Physician] - 10/06/17 9:15 am () Lola Whiteside CNP [Primary Care Provider] -
[2017-09-28] MEDS ORDERED: 0.9 % Sodium Chloride 1,000 ML ONE ×2 (14:34→15:11)
[2017-09-28] MEDS ORDERED: Nitroglycerin 1,000 MCG/10 ML VIAL IV ONE (14:34)
[2017-09-28] MEDS ORDERED: Heparin 1,000 UNITS/500 mL 500 ML ONE (14:34)
[2017-09-28] MEDS ORDERED: Verapamil 5 MG/2 ML VIAL ONE (14:34)
[2017-09-28] MEDS ORDERED: ISOVUE-370 200 ML INFUS..BTL IV ONE (14:34)
[2017-09-28] MEDS ORDERED: *HR* Heparin 10,000 UNIT/10 ML VIAL ONE (14:34)
[2017-09-28] MEDS ORDERED: *HR* FentaNYL (PF) 100 MCG/2 ML VIAL ONE (15:11)
[2017-09-28] MEDS ORDERED: *HR* Midazolam HCl 2 MG/2 ML VIAL ONE ×2 (15:11→15:26)
--- NOTE | 2017-09-28 15:56 | Pre-Sedation Evaluation ---
Pre-sedation evaluation - Pre-sedation checklist Date of procedure: 09/28/17 Procedure: heart cath Recent Vitals: Last Vital Signs Temp 98.2 F 09/28/17 11:33 Pulse 87 09/28/17 11:33 Resp 18 09/28/17 11:33 BP 150/87 09/28/17 11:33 Pulse Ox 99 09/28/17 11:33 H&P (including ROS) documented in medical record: Yes Previous reaction to sedatives/anesthetics: Unknown Dietary Status: NPO after Midnight Dentition: No loose teeth or bridges ASA Classification *see protocol: CLASS II-Mild systemic disease Plan of Care: Pt appropriate candidate for procedure/moderate/conscious sedation , Risks/benefits of procedure/sedation discussed w/ patient/family
--- NOTE | 2017-09-28 16:04 | Invasive Diagnostic Lab Proc ---
Name: Quinn Mar Date of Study: 09/28/2017 Date: 1945 Ht: 75.2in Medical Record#: [id number] Age: 71 Wt: 222.67lb Gender: Male BSA: 2.3 Order #: [id number] BMI: 27.69 Physicians Procedure Physician: Raffaele Glynn MD, [facility] Referring MD: Referring MD: Staff Name Position Time In Carmen Seals RT (R) Scrub 02:42 PM Lola Somers RN Whip Operator 02:42 PM Blaine Higgins RT (R) Monitor 02:42 PM Indications Indication Abnormal Test - Stress Procedures Performed Procedure L HRT ARTERY/VENTRICLE ANGIO Pre-Procedure Checklist Informed consent is complete signed and on chart. H&P is on chart. ID band is on and ID verified with patient. Patient NPO for procedure The procedure was described for the patient and questions were answered. Blood Pressure: 162/99 ECG is on chart. Rhythm: NSR Plan of Care Patient will tolerate the procedure without complications. Adequate level of comfort will be maintained. Hemodynamics will remain stable Patient will recover from procedure without complications. Respiratory function will be maintained. Cardiac rhythm will remain stable. Patient temperature will be maintained. Patient and/or family have verbalized understanding of the procedure. Patient Education Chief Complaint/Reason for Test: Cardiac Cath Developmental Category: Geriatric (65+ years) Developmentally Appropriate for Age: Yes Learning Barriers: None Education Needs: Procedure Education Method: Verbal Information Taught: Cardiac Cath Educational Evaluation: Able to repeat information Intravenous Access Time IV Size Location DC'd Fluid/Drip Rate Units RN 03:14 PM 18g 1 05/21" Patent On Arrival Lt Arm 0.9NaCl 25 ml/hr Lola Somers RN Allergies Penicillins Vital Signs Time BP (mmHg) HR (bpm) O2 Sat. RR (bpm) LOC 03:05 PM 162 / 99 87 98 % 18 5 = Fully awake and oriented or at pre-proc level 03:05 PM / % 4 = Oriented but drowsy 03:20 PM / % 4 = Oriented but drowsy 03:14 PM 162 / 99 92 99 % 03:19 PM 153 / 82 78 98 % 03:23 PM 122 / 84 94 97 % 03:28 PM 115 / 73 103 95 % 03:33 PM 113 / 70 80 95 % 03:38 PM 116 / 73 97 96 % 03:43 PM 134 / 80 78 95 % 03:48 PM 113 / 73 76 96 % 03:35 PM / % 5 = Fully awake and oriented or at pre-proc level Procedural Medications Time Medication Dose Units Method Given By 03:15 PM Versed 2 mg Intravenous Lola Somers RN 03:15 PM Fentanyl 50 mcg Intravenous Lola Somers RN 03:24 PM Lidocaine 2% 0.5 ml Subcutaneous Raffaele Glynn MD, [facility] 03:25 PM Versed 1 mg Intravenous Lola Somers RN 03:25 PM Fentanyl 25 mcg Intravenous Lola Somers RN 03:26 PM Heparin 4000 units Nitroglycerin 200 mcg Verapamil 2.5 mg Intraarterial Raffaele Glynn MD, [facility] ASA Classification: CLASS III- Severe systemic disease (i.e. prior AMI, diabetes with vascular complications, morbid obesity) Mark Score Preprocedure Postprocedure Activity 2- Moves 4 extremities sustained head lift Activity 2- Moves 4 extremities sustained head lift Circulation 2- SBP +/= 20 points of pre-anesthetic level Circulation 2- SBP +/= 20 points of pre-anesthetic level Consciousness 2- Awake and alert oriented x 3 Consciousness 2- Awake and alert oriented x 3 O2 Saturation 2- Able to maintain O2 satruation of 92% on room air O2 Saturation 2- Able to maintain O2 satruation of 92% on room air Respiratory 2- Able to deep breathe and cough well Respiratory 2- Able to deep breathe and cough well Total Score 10 Total Score 10 Contrast Agent: Isovue Diagnostic Contrast: 70 ml Total Contrast: 70 ml Fluoro Dose: 622 mGy Procedure Log Time Note Enter By 02:42 PM Carmen Seals RT (R) Position: Scrub Time in: 14:42 [email or web address] 02:42 PM Lola Somers RN Position: Whip Operator Time in: 14:42 [email or web address] 02:42 PM Blaine Higgins RT (R) Position: Monitor Time in: 14:42 [email or web address] 02:43 PM Patient charges- Angio tray pack, Navilyst 3mm J, Pulse Oximetry and ACIST tubing and transducer [email or web address] 03:05 PM Pt arrived to blood bank laboratory technician 2 at 15:05 [email or web address] 03:05 PM CathStat 03:05 PM Case Delayed No [email or web address] 03:05 PM Time: 15:05 Patient comfortable and pain free: Yes 03:05 PM Time: 15:05LOC: 5 = Fully awake and oriented or at pre-proc level 03:07 PM Physician arrived 15: 03:07 PM Eleuterio and howard completed 03:07 PM Sign in performed according to hospital policy. 03:07 PM Procedure start 15: 03:07 PM ASA Class CLASS III- Severe systemic disease (i.e. prior AMI, diabetes with vascular complications, morbid obesity) 03:12 PM Hair removed from procedure site in procedure lab using clippers. Right groin prepped with Chloraprep by Carmen Seals (R), then patient was draped. Skin intact. 03:12 PM Hair removed from procedure site in procedure lab using clippers. Right wrist prepped with Chloraprep by Carmen Seals (R), then patient was draped. Skin intact. 03:13 PM Vitals capture started with the following parameters, Patient=Adult, Interval=5 min, Initial Fmbrkxue=800 mmHg, Deflation Rate=5 mmHg, Cuff placed on Right Arm 03:14 PM HR=92 bpm, DKAN=420/99 mmhg, SpO2=99.0 % 03:14 PM Recorded ECG: HR=85 Condition=Condition 1 03:15 PM Time: 15:15 Versed 2 mg Intravenous Given by Lola Somers RN 03:15 PM Time: 15:15 Fentanyl 50 mcg Intravenous Given by Lola Somers RN [facility] 03:19 PM HR=78 bpm, WDKF=978/82 mmhg, SpO2=98.0 % 03:20 PM Time: 15:05 Patient comfortable and pain free: Yes 03:20 PM Time: 15:05LOC: 4 = Oriented but drowsy 03:23 PM HR=94 bpm, WQQU=355/84 mmhg, SpO2=97.0 % 03:24 PM Pressure channel 1 zeroed. 03:24 PM Time out performed according to hospital policy 03:24 PM Clinical Presentation: Unstable angina 03:25 PM Time: 15:24 0.5 ml Lidocaine 2% to right radial Subcutaneous [facility] [email or web address] 03:25 PM Access obtained by percutaneous puncture. 6Fr 10cm Terumo Glidesheath sheath placed in right Radial artery. [id number] [email or web address] 03:25 PM Time: 15:25 Versed 1 mg Intravenous Given by Lola Somers RN [email or web address] 03:26 PM Time: 15:25 Fentanyl 25 mcg Intravenous Given by Lola Somers RN [email or web address] 03:26 PM Time: 15:26 Patient given 4,000 units Heparin, 200 mcg Nitroglycerin, and 2.5 mg Verapamil Intraarterial by Raffaele Glynn MD, [facility]. This is given to reduce risk of vessel spasm and thrombosis. [email or web address] 03:26 PM 0.035 260cm Navilyst 3mmJ wire [id number] [email or web address] 03:27 PM 5Fr TIG catheter inserted over the wire [facility] [email or web address] 03:28 PM Recorded Pressure: Ao, KF=778, Condition=Condition 1 (Aorta) Ao 94/59/73 03:28 PM LCA angiography performed in multiple views. [email or web address] 03:28 PM HP=244 bpm, YWJY=154/73 mmhg, SpO2=95.0 % 03:33 PM Catheter removed [email or web address] 03:33 PM HR=80 bpm, QVPD=816/70 mmhg, SpO2=95.0 % 03:35 PM 5Fr 3DRC catheter inserted over the wire [id number] [email or web address] 03:35 PM Lesion found in LMCA. Pre Stenosis: 40 Pre ANA MARIA Flow: [email or web address] 03:35 PM Left Main Coronary Artery with 40% stenosis [email or web address] 03:35 PM Lesion found in Mid LAD. Pre Stenosis: 30 Pre ANA MARIA Flow: [email or web address] 03:35 PM Mid/Distal Left Anterior Descending Coronary Artery and diagonal branches with 30% stenosis. If graft is supplying this area, 0 % stenosis [email or web address] 03:35 PM Time: 15:20 Patient comfortable and pain free: Yes [email or web address] 03:35 PM Time: 15:20LOC: 4 = Oriented but drowsy [email or web address] 03:36 PM Pressure channel 1 zero failed. 03:36 PM Pressure channel 1 zeroed. 03:36 PM Catheter removed [email or web address] 03:37 PM 5Fr AR1 catheter inserted over the wire [id number] [email or web address] 03:38 PM HR=97 bpm, RDYN=204/73 mmhg, SpO2=96.0 % 03:38 PM RCA angiography performed in multiple views. [email or web address] 03:38 PM Recorded Pressure: Ao, HR=91, Condition=Condition 1 (Aorta) Ao 182/68/123 03:39 PM Coronary Dominance: right [email or web address] 03:39 PM Catheter removed [email or web address] 03:39 PM Lesion found in Proximal RCA. Pre Stenosis: 100 Pre ANA MARIA Flow: [email or web address] 03:40 PM Right Coronary, Right Posterior Descending Arteries with Right Posterolateral and Acute Marginal branches with 100 % stenosis. If graft is supplying this area, 0 % stenosis [email or web address] 03:40 PM 5Fr Pigtail catheter inserted over the wire [facility] [email or web address] 03:41 PM Catheter removed [email or web address] 03:42 PM 5Fr pig 145 catheter inserted over the wire [id number] [email or web address] 03:43 PM HR=78 bpm, NXQB=254/80 mmhg, SpO2=95.0 % 03:44 PM Recorded Pressure: LV, HR=82, Condition=Condition 1 (Left Ventricle) LV 87/14/24 03:44 PM Catheter selectively placed in left ventricle [email or web address] 03:44 PM Bolus angiogram of left Ventricle complete: 10 ml/sec for a total of 20 mls [email or web address] 03:44 PM Recorded Pressure: LV, HR=84, Condition=Condition 1 (Left Ventricle) LV 133/8/23 03:45 PM Recorded Pressure: LV, Ao, HR=61, Condition=Condition 1 (Left Ventricle) LV 148/7/20, (Aorta) Ao 118/40/78 03:45 PM Catheter removed [email or web address] 03:46 PM Arterial sheath pulled, Vasc Band closure device used and was Successful S/N. [email or web address] 03:46 PM Procedure completed at 15:46 [email or web address] 03:47 PM Sign out completed: Radiation Dose 622.14 mGy Fluoro Time: 6.8 Isovue 370 - 200ml contrast 70 ml given by Raffaele Glnyn MD, [facility]. Complications: NoneCardiac Rehab Consult needed: NoConfirmed administered medications: Yes [email or web address] 03:47 PM Isovue 370 - 200ml,1 Bottle(s) used. [email or web address] 03:47 PM 12 ml air in Vasc Band. [email or web address] 03:47 PM Estimated Blood Loss: less than 20cc [email or web address] 03:47 PM Post Blood Pressure 134/80 [email or web address] 03:47 PM 15:47 Post Pulses Rt Radial 1+ [email or web address] 03:47 PM Information taught Cardiac Cath and Vasc Band [email or web address] 03:48 PM Education needs Procedure, Plan of Care, and Disease Process [email or web address] 03:48 PM Learning barriers :Sedated [email or web address] 03:48 PM Education Methods Verbal [email or web address] 03:48 PM Education evaluation Needs further instruction [email or web address] 03:48 PM Site status No bleeding/hematoma - Rt Wrist as reported by Carmen Seals RT (R) at 15:48 [email or web address] 03:48 PM Delay to floor No [email or web address] 03:48 PM Complications: None [email or web address] 03:48 PM HR=76 bpm, YVBD=110/73 mmhg, SpO2=96.0 % 03:48 PM Fluoro Time: 6.8 [email or web address] 03:48 PM Isovue 370 - 200ml contrast 70 ml given by . [email or web address] 03:48 PM Radiation Dose 622.14 mGy [email or web address] 03:50 PM Vitals capture stopped. 03:50 PM Time: 15:35 Patient comfortable and pain free: Yes [email or web address] 03:51 PM Time: 15:35LOC: 5 = Fully awake and oriented or at pre-proc level [email or web address] 03:53 PM Patient out of room: 15:53 [email or web address] 03:53 PM Report given to felisa REAL Pt taken to 2N Room #1. 15:53 [email or web address] Complications Complication None None Hemodynamics Pressures Site Systolic/A Wave Diastolic/V Wave Mean AO 94 59 73 AO 182 68 123 LV 87 14 24 LV 133 8 23 LV 148 7 20 AO 118 40 78 Post Procedure Information Blood Pressure: 134/80 mmHg Post procedural instructions were given Closure Device Time Device Success/Fail 09/28/2017 3:46:00 PM Mechanical Compression Successful Site Checks Time Location Status Staff Sheath In? Note 03:48 PM Rt Wrist No bleeding/hematoma Carmen Seals RT (R) Pulses Time Site Pre-Procedure Post-Procedure Note 09/28/2017 3:15:00 PM Rt Radial 2+ 09/28/2017 3:15:00 PM Bilateral DP & PT 1+ 3:47:00 PM Rt Radial 1+ Updated by Blaine Higgins RT (R) on 09/28/2017 3:56:26 PM Bliane Higgins RT electronically signed on 09/28/2017 3:56:56 PM with status of Final
[2017-09-28] MEDS: *HR* Enoxaparin 40 MG/0.4 ML SYRINGE SQ SCH (17:37)
[2017-09-29] MEDS: Insulin LISPRO 300 UNITS/3 ML VIAL SQ SCH ×4 (00:09→17:08)
[2017-09-29 06:50] LABS: Basophils # 0.1 K/mcL (0.0-0.2); Basophils % 0.6 %; Eosinophils # 0.2 K/mcL (0.0-0.6); Eosinophils % 1.6 %; Hematocrit 37.9 % (37.5-50.1); Hemoglobin 13.2 g/dL (12.9-16.9); Immature Granulocytes % 1.1 % (0-4); Lymphocytes # 1.6 K/mcL (0.6-4.6); Lymphocytes % 13.6 %; Mean Corpuscular HGB Conc 34.8 g/dL (31.6-35.5); Mean Corpuscular Hemoglobin 28.9 pg (28.0-33.3); Mean Corpuscular Volume 82.9 fL (83.0-100.0); Monocytes # 0.6 K/mcL (0.0-1.3); Monocytes % 5.5 %; Platelet Count 258 K/mcL (140-400); Red Blood Count 4.57 M/mcL (4.19-5.50); Red Cell Distribution Width 14.7 % (11.5-14.5); Segmented Neutrophils % 77.6 %
[2017-09-29 06:54] LABS: BUN/Creatinine Ratio 12 (6-26); Blood Urea Nitrogen 15 mg/dL (8-23); Calcium 9.5 mg/dL (8.6-10.3); Carbon Dioxide 19 mEq/L (23-29); Chloride 111 mEq/L (98-107); Glucose 138 mg/dL (70-105); Osmolality,Calculated 291 (280-300); Potassium 4.4 mEq/L (3.5-5.1); Sodium 139 mEq/L (136-145); eGFR For African Americans > 60 (> 60); eGFR For Non-African Americans 58 (> 60)
--- NOTE | 2017-09-29 06:54 | Electrocardiograph Report ---
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
[2017-09-29] MEDS: *HR* Enoxaparin 40 MG/0.4 ML SYRINGE SQ SCH (07:21)
[2017-09-29] MEDS: Budesonide/Formoterol 80/4.5 MDI IH SCH (08:05)
[2017-09-29] MEDS ORDERED: Aspirin Enteric Coated 81 MG Tablet PO SCH (09:00)
[2017-09-29] MEDS ORDERED: amLODIPine 5 MG TABLET PO SCH (09:00)
--- NOTE | 2017-09-29 11:41 | Cardiology Progress Note ---
Date of Encounter: 09/29/17 Time of Encounter: 11:35 Assessment and Plan (1) NSVT (nonsustained ventricular tachycardia) Current Visit: Yes Status: Acute S/p LHC for evaluation of NSVT and symptoms concerning for unstable angina. 7 beat run seen during stay. No recurrent SVT seen. LHC showed 40% mLMCA stenosis, 30-40% stenosis mLAD, 100% stenosis in the RCA with left to right collaterals. No complication with procedure. No AV christian carla due to bradycardia and AV block. (2) Mobitz (type) II atrioventricular block Current Visit: Yes Status: Acute EKG and telemetry shows possible intermittent mobitz type II or 2:1 AV block. Bradycardia with HR as low as 33 bpm and 2.3 second pauses seen. Telemetry over last 24 hors shows avg HR 89 bpm. Min HR 39 bpm. Pauses up to 2.2 seconds (with blocked PAC). C/o increasing intermittent dizziness mostly with position change but more recently another episode while driving. No recurrent symptoms here. Avoid AV christian blocking agents. Also reports new medication for DM recently started. H/o VENKATESH and he does not always wear c-pap. Importance of wearing c-pap reviewed. TTE shows EF 55%. No significant valvular disease. EP consulted for evaluation. (3) Atrial fibrillation Current Visit: No Status: Acute Reported history of PAF. Current SR-SB with mobitz type II. Hold cardizem for now. Reports stopping coumadin in the past on his own. CHADS VASc=3 for HTN, Age, and CAD. I discussed re-starting AC in the future to decrease CVA risk. We will start NOAC pending hospital course. Qualifiers: Atrial fibrillation type: paroxysmal Qualified Code(s): I48.0 - Paroxysmal atrial fibrillation (4) Coronary artery disease Current Visit: No Status: Acute H/o multiple [place] and PCI to the LAD in 2014. LHC this admit shows stable CAD. Continue brilinta, asa, statin. No bb due to AV block. Qualifiers: Coronary Disease-Associated Artery/Lesion type: [place] artery [place] vs. transplanted heart: [place] heart Associated angina: without angina Qualified Code(s): I25.10 - Atherosclerotic heart disease of [place] coronary artery without angina pectoris Discussion w patient/family: The assessment and plan as outlined above was discussed with the patient and/or family members who expressed understanding and agreement. All questions were answered. Thank you for involving us in the care of your patient. Please call with any questions. Subjective Principal diagnosis: dizziness, dyspnea Interval history: Mr. Mar is s/p C yesterday. No complications from procedure. Reports he is feeling better. Denies dyspnea or dizziness. Objective Vital Signs, Last 4 Hours Temp Pulse Resp BP Pulse Ox 09/29/17 10:55 98.4 F 77 14 129/86 09/29/17 08:05 16 97 General: Conversant, No Apparent Distress HEENT: Atraumatic, Normocephaly, Mucus Membranes Moist Neck: No JVD, Normal carotid pulses Cardiac: Reg Rate and Rhythm, Normal S1 and S2, No Murmur Lungs: Normal Breath Sounds, No Wheeze, Rales, Rhonchi Neuro: Alert and responsive, No focal deficits noted Abdomen: Soft, Non-Tender Skin: No rashes noted on visualized skin Musculoskeletal: No Chest Wall Tenderness Extremities: No Clubbing, No Cyanosis, No Edema, Normal Pulses, Other (right radial access without hematoma.) Results 09/29/17 05:55 09/29/17 05:55 Lab Results 09/29/17 09/29/17 05:55 05:55 WBC 11.6 H Hgb 13.2 Hct 37.9 Plt Count 258 Sodium 139 Potassium 4.4 Chloride 111 H Carbon Dioxide 19 L BUN 15 Creatinine 1.22 Glucose 138 H Calcium 9.5 - Imaging and Cardiology Echo: report reviewed Cardiac cath: report reviewed Consult Discharge Plan - Plan Referrals: Bertha Plunkett MD [Partnered Physician] - (Patient to call and schedule appointment so they can give him the instructions) Lola Whiteside CNP [Primary Care Provider] - 10/08/17 10:30 am
--- NOTE | 2017-09-29 12:44 | Electrophysiology Consult Note ---
<Song Robles R - Last Filed: 09/29/17 13:02> Date of Encounter: 09/29/17 Time of Encounter: 12:44 Assessment and Plan (1) Melisa Current Visit: Yes Status: Acute EKG and telemetry reviewed with Dr. Chilo Garg. Appears to be intermittent Wenckebach, also blocked PACs. K 4.4, Mag 2.3, TSH 0.724. Telemetry over last 24 hours shows avg HR 86 bpm. Min HR 52 bpm. Pauses up to 2.4 seconds (with blocked PAC). C/o increasing intermittent dizziness mostly with position change but more recently another episode while driving. No recurrent symptoms while inpt. Avoid AV christian blocking agents. Was on Cardizem CD 240mg at home, stopped on admission. Also reports new medication for DM recently started. H/o VENKATESH and he does not always wear c-pap. TTE shows EF 55%. No significant valvular disease. Discussed and reviewed with Dr. Chilo Garg. He will see and examine pt and determine if PPM is warranted. (2) Atrial fibrillation Current Visit: No Status: Acute Reported history of PAF. Current SR-SB with Melisa, blocked PACs. Hold cardizem for now. Reports stopping coumadin in the past on his own. CHADS VASc=3 for HTN, Age, and CAD. Discussed re-starting AC in the future to decrease CVA risk. We will start NOAC pending hospital course. Qualifiers: Atrial fibrillation type: paroxysmal Qualified Code(s): I48.0 - Paroxysmal atrial fibrillation (3) Coronary artery disease Current Visit: No Status: Acute H/o multiple NV and PCI to the LAD in 2014. [facility] this admit shows stable CAD. Continue brilinta, asa, statin. No bb due to AV block. Qualifiers: Coronary Disease-Associated Artery/Lesion type: [place] artery [place] vs. transplanted heart: [place] heart Associated angina: without angina Qualified Code(s): I25.10 - Atherosclerotic heart disease of [place] coronary artery without angina pectoris Discussion w patient/family: The assessment and plan as outlined above was discussed with the patient and/or family members who expressed understanding and agreement. All questions were answered. Thank you for involving us in the care of your patient. Please call with any questions. I will discuss all the above with Dr. Chilo Gagr and make changes as necessary. History of Present Illness Consult date: 09/29/17 Requesting physician: Dave Luis Consult reason: AV block Chief complaint: dizziness History of present illness: Mr. Mar is a 71 year old male with PMH significant for CAD s/p NV and previous PCI, atrial fibrillation, HTN, HLD, prior toacco abuse, COPD, and recently diagnosed laryngeal cancer. He presented with the c/o intermittent dizziness and lightheadedness. C/o on going symptoms of lightheadedness with standing or position change. Two days ago he was driving when he developed dizziness. Denies syncope. C/o increasing SOB and using his c-pap during daytime hours. Denies fever or chills. Denies chest pain. Reports he was found to have abnormal EKG after recent laryngeal tumor removal and was referred to cardiology at that time. NSVT noted on telemetry 2 days ago, underwent LHC yesterday with stable disease, no intervention. Pt was on Cardizem CD 240mg daily at home that has been held since admission. There were EKGs and telemetry concerning for Mobitz type II and EP was consulted for further recs. Of note, pt does report recent addition of diabetes medication and being noncompliant with CPAP. He denies dizziness or lightheadedness since being admitted. Echo 09/28/17: LVEF 55%. Normal LV chamber size, wall thickness and overall function. Mild segmental left ventricular systolic dysfunction. Mild left ventricular diastolic dysfunction. Normal right ventricular structure and function. No evidence of pulmonary hypertension. No significant valvular dysfunction. Past Med Surg Social Fam HX - Past Medical History Medical history: arthritis, cancer, COPD, coronary artery disease, diabetes, hyperlipidemia, hypertension, myocardial infarction, renal disease Psychiatric history: no psych history - Past Surgical History Surgical History: angioplasty/stent - Social History Smoking Status: Former smoker Smokeless Tobacco Status: No Alcohol use: none Drug use: none - Family History Father Living Status: Hx Family Cardiac Disorders: No Hx Family Respiratory Disorders: No Hx Family Cancer: No Hx Family GI Disorders: No Hx Family Endocrine Disorder: No Hx Family Neuromuscular Disorders: No Hx Family Neurologic Disorders: No Hx Family HEENT Disorders: No Hx Family Autoimmune Disorders: No Mother Living Status: Hx Family Cardiac Disorders: Yes (Heart attack, hypertension) Hx Family Respiratory Disorders: No Hx Family Cancer: No Hx Family GI Disorders: No Hx Family Endocrine Disorder: Yes (diabetes) Hx Family Neuromuscular Disorders: No Hx Family Neurologic Disorders: No Hx Family HEENT Disorders: No Hx Family Autoimmune Disorders: No Medications and Allergies Aspirin Enteric Coated [Aspirin EC] 81 mg PO QAM 01/24/15 [History] Albuterol Sulfate [Ventolin Hfa] 2 puff IH Q4H PRN 09/15/17 [History] Cilostazol [Pletal] 100 mg PO BID 09/15/17 [History] Clopidogrel [Plavix] 75 mg PO DAILY 09/15/17 [History] Diltiazem CD (24hr) [Cardizem CD] 240 mg PO DAILY 09/15/17 [History] Glimepiride [Amaryl] 2 mg PO DAILY 09/15/17 [History] Liraglutide [Victoza 3-Rich] 1.2 unit IJ DAILY 09/15/17 [History] Sitagliptin Phosphate [Januvia] 50 mg PO DAILY 09/15/17 [History] Tamsulosin HCl [Flomax] 0.4 mg PO DAILY 09/15/17 [History] amLODIPine [Norvasc] 5 mg PO DAILY 09/15/17 [History] Cyanocobalamin (Vitamin B-12) [Vitamin B12] 1,000 mcg PO QWEEK 09/28/17 [History ] Ergocalciferol (VITAMIN D2) [Vitamin D2] 50,000 unit PO QWEEK 09/28/17 [History] Ferrous Sulfate [Iron] 325 mg PO DAILY 09/28/17 [History] Losartan Potassium [Cozaar] 100 mg PO DAILY 09/28/17 [History] Lovastatin 40 mg PO DAILY 09/28/17 [History] Omeprazole [PriLOSEC] 20 mg PO DAILY 09/28/17 [History] 3 Allergy/AdvReac Type Severity Reaction Status Date / Time Penicillins Allergy Rash Verified 09/28/17 09:28 All Systems Review: The remainder of the systems were reviewed and are negative - Cardiovascular Cardiovascular: as per HPI, dyspnea at rest, dyspnea on exertion, lightheadedness - Respiratory Respiratory: dyspnea - Neurological Neurological: dizziness Physical Examination Vital Signs, Last 4 Hours Temp Pulse Resp BP 09/29/17 10:55 98.4 F 77 14 129/86 Vital Signs Temp Pulse Resp BP Pulse Ox 09/29/17 10:55 98.4 F 77 14 129/86 09/29/17 08:05 16 97 09/29/17 06:41 138/84 09/29/17 05:49 98.0 F 85 17 141/107 97 09/29/17 04:00 22 133/96 95 09/28/17 23:18 98.2 F 95 18 133/96 96 09/28/17 22:23 12 95 09/28/17 20:47 99 09/28/17 20:08 16 95 09/28/17 19:19 97.7 F 96 20 140/82 95 09/28/17 18:00 100 123/64 09/28/17 17:30 84 09/28/17 17:00 70 09/28/17 16:30 80 09/28/17 16:15 100 09/28/17 16:13 98.4 F 95 18 137/90 98 09/28/17 16:00 76 Intake and Output 09/28/17 09/29/17 09/29/17 23:59 07:59 15:59 Output Total 800 / 800 Balance -800 / -800 Output: Urine 800 / 800 Other: Meal npo Weight 102.5 kg Blood Glucose* 93 126 127 Patient Weight 09/29/17 23:59 Weight 102.5 kg General: Conversant, No Apparent Distress HEENT: Atraumatic, Normocephaly, Mucus Membranes Moist Neck: No JVD, Normal carotid pulses Cardiac: Reg Rate and Rhythm, Normal S1 and S2, No Murmur Lungs: Normal Breath Sounds, No Wheeze, Rales, Rhonchi Neuro: Alert and responsive, No focal deficits noted Abdomen: Soft, Non-Tender Skin: No rashes noted on visualized skin Musculoskeletal: No Chest Wall Tenderness Extremities: No Clubbing, No Cyanosis, No Edema Results 09/29/17 05:55 09/29/17 05:55 Lab Results 09/29/17 09/29/17 05:55 05:55 WBC 11.6 H Hgb 13.2 Hct 37.9 Plt Count 258 Sodium 139 Potassium 4.4 Chloride 111 H Carbon Dioxide 19 L BUN 15 Creatinine 1.22 Glucose 138 H Calcium 9.5 Short CBC 09/29/17 Range/Units 05:55 WBC 11.6 H (4.3-11.1) K/mcL Hgb 13.2 (12.9-16.9) g/dL Hct 37.9 (37.5-50.1) % Plt Count 258 (140-400) K/mcL Neutrophils # 9.0 H (1.6-8.9) K/mcL BMP 09/29/17 Range/Units 05:55 Sodium 139 (136-145) mEq/L Potassium 4.4 (3.5-5.1) mEq/L Chloride 111 H (98-107) mEq/L Carbon Dioxide 19 L (23-29) mEq/L BUN 15 (8-23) mg/dL Creatinine 1.22 (0.70-1.30) mg/dL Glucose 138 H (70-105) mg/dL Calcium 9.5 (8.6-10.3) mg/dL Impressions Echocardiogram 09/28/17 00:00 Impressions: LVEF 55%. Normal LV chamber size, wall thickness and overall function. Mild segmental left ventricular systolic dysfunction. Mild left ventricular diastolic dysfunction. Normal right ventricular structure and function. No evidence of pulmonary hypertension. No significant valvular dysfunction. Left Ventricular Wall Motion: Rest Echo Findings The basal inferior wall was hypokinetic. All other wall segments showed normal motion. Findings: Study Quality * Technically adequate exam. ECG Findings * Normal sinus rhythm. Appears to be a first degree AV block. Left Ventricle * LVEF 55%. * Normal LV chamber size, wall thickness and overall function. * Mild segmental left ventricular systolic dysfunction. * Mild left ventricular diastolic dysfunction. Right Ventricle * Normal right ventricular structure and function. Left Atrium * Mildly dilated left atrium. Right Atrium * Normal right atrial size. Aortic Valve * Trileaflet aortic valve. * Mildly calcified aortic valve leaflets. * No aortic regurgitation. * No aortic stenosis. Mitral Valve * Normal mitral valve structure and function. * No mitral stenosis. * No mitral regurgitation. Tricuspid Valve * Normal tricuspid valve structure and function. * Trace tricuspid regurgitation. * No evidence of pulmonary hypertension. Pulmonic Valve * Pulmonic valve is not well visualized. * No pulmonic regurgitation. Aorta * Normally sized aortic root. Pericardium * The pericardium appears normal. IVC * The IVC is not well evaluated. Pulmonary Artery * Pulmonary artery not well visualized. Active Medications Albuterol Sulfate (Proventil Neb) 2.5 mg IH [id number] PRN; Protocol PRN Reason: Shortness Of Breath/Wheezing Stop: 03/29/18 23:27 Amlodipine Besylate (Norvasc) 5 mg PO DAILY [facility] PRN Reason: Protocol Stop: 03/31/18 09:01 Last Admin: 09/29/17 07:21 Dose: 5 mg Aspirin (Aspirin Ec) 81 mg PO QAM [facility] Stop: 03/31/18 09:01 Last Admin: 09/29/17 07:21 Dose: 81 mg Atorvastatin Calcium (Lipitor) 10 mg PO HS [facility] Stop: 03/30/18 21:01 Last Admin: 09/28/17 20:47 Dose: 10 mg Budesonide/Formoterol Fumarate (Symbicort) 1 puff IH BIDR [facility] PRN Reason: Protocol Stop: 03/30/18 10:01 Last Admin: 09/29/17 08:05 Dose: 1 puff Cilostazol (Pletal) 100 mg PO BID [facility] Stop: 03/30/18 21:01 Last Admin: 09/29/17 07:21 Dose: 100 mg Clopidogrel Bisulfate (Plavix) 75 mg PO DAILY [facility] Stop: 03/30/18 09:01 Last Admin: 09/29/17 07:21 Dose: 75 mg Dextrose/Water (Dextrose 50% (Syg)) 25 ml IVP AD PRN PRN Reason: Hypoglycemia Stop: 03/29/18 23:34 Enoxaparin Sodium (Lovenox) 40 mg SQ DAILY [facility] Stop: 03/30/18 16:01 Last Admin: 09/29/17 07:21 Dose: 40 mg Glucagon (Glucagen) 1 mg IM ONCE PRN PRN Reason: Hypoglycemia Stop: 03/29/18 23:34 Glucose (Gluctose) 15 gm PO ONCE PRN PRN Reason: Hypoglycemia Stop: 03/29/18 23:34 Glucose (Gluctose) 30 gm PO ONCE PRN PRN Reason: Hypoglycemia Stop: 03/29/18 23:34 Dextrose (Dextrose 5%) 1,000 mls @ 100 mls/hr IVC .Q10H PRN PRN Reason: HYPOGLYCEMIA Stop: 03/29/18 23:34 Insulin Human Lispro (Humalog) 0 units SQ Q6HR [facility] PRN Reason: Protocol Stop: 03/30/18 00:01 Last Admin: 09/29/17 11:31 Dose: Not Given Losartan Potassium (Cozaar) 100 mg PO DAILY [facility] Stop: 03/31/18 09:01 Last Admin: 09/29/17 07:21 Dose: 100 mg Naloxone HCl (Narcan) 0.4 mg IVP Q2MIN PRN PRN Reason: SEE COMMENTS Stop: 03/29/18 23:20 Omeprazole (Prilosec) 20 mg PO DAILY@0630 [place] PRN Reason: Protocol Stop: 03/30/18 06:31 Last Admin: 09/29/17 06:05 Dose: Not Given Tamsulosin HCl (Flomax) 0.4 mg PO DAILY [place] PRN Reason: Protocol Stop: 03/30/18 09:01 Last Admin: 09/29/17 07:21 Dose: 0.4 mg Consult Discharge Plan - Plan Referrals: Bertha Plunkett MD [Partnered Physician] - (Patient to call and schedule appointment so they can give him the instructions) Lola Whiteside CRIPPLE CUTTER [Primary Care Provider] - 10/08/17 10:30 am <Chilo Garg - Last Filed: 09/29/17 15:33> Date of Encounter: 09/29/17 - Attending Attestation I have personally performed a face to face evaluation on this patient. I have reviewed and agree with the care plan. History and Exam by me shows: Intermittent wenkebach and blocked PACs. Consider pacemaker if symptomatic. At this point he would be more interested in pursuing further monitoring to establish correlation with symptoms prior to proceeding with pacemaker. He is anxious to not delay cancer workup. Assessment and Plan Discussion w patient/family: The assessment and plan as outlined above was discussed with the patient and/or family members who expressed understanding and agreement. All questions were answered. Thank you for involving us in the care of your patient. Please call with any questions. History of Present Illness History of present illness: Mr. Mar is a 71 year old male All Systems Review: The remainder of the systems were reviewed and are negative Physical Examination Vital Signs, Last 4 Hours Pulse 09/29/17 14:57 96 09/29/17 14:28 120 Results 09/29/17 05:55 09/29/17 05:55 Lab Results 09/29/17 09/29/17 05:55 05:55 WBC 11.6 H Hgb 13.2 Hct 37.9 Plt Count 258 Sodium 139 Potassium 4.4 Chloride 111 H Carbon Dioxide 19 L BUN 15 Creatinine 1.22 Glucose 138 H Calcium 9.5
--- NOTE | 2017-09-29 15:03 | Internal Med Progress Note ---
Date of Encounter: 09/29/17 Time of Encounter: 08:45 - Assessment and plan (1) Symptomatic bradycardia Current Visit: Yes Status: Acute Assessment and plan: Mobitz II AV block Beta carla and CCB on hold; continue Telemetry monitoring; continues to have intermittent pauses; Cardiology on board; C yesterday, non-obstructive, no intervention. EP Cardiology consult noted; no PPM placement today, pending 's evaluation; continue current management; HR improved but continues to have intermittent bradycardia and pauses; (2) Mobitz (type) II atrioventricular block Current Visit: Yes Status: Acute Assessment and plan: plan as above; (3) HTN (hypertension) Current Visit: Yes Status: Chronic Assessment and plan: BP well-controlled; continue Norvasc and ARB; Qualifiers: Hypertension type: essential hypertension Qualified Code(s): I10 - Essential (primary) hypertension (4) COPD (chronic obstructive pulmonary disease) Current Visit: Yes Status: Chronic Assessment and plan: not in acute exacerbation; continue PRN bronchodilators and supplemental o2; ICS /LABA; Qualifiers: COPD type: emphysema Emphysema type: unspecified Qualified Code(s): J43.9 - Emphysema, unspecified (5) Coronary artery disease Current Visit: Yes Status: Chronic Assessment and plan: continue ASA, Plavix, statin; Qualifiers: Coronary Disease-Associated Artery/Lesion type: [place] artery [place] vs. transplanted heart: [place] heart Associated angina: without angina Qualified Code(s): I25.10 - Atherosclerotic heart disease of [place] coronary artery without angina pectoris (6) Atrial fibrillation Current Visit: Yes Status: Chronic Assessment and plan: no rate control meds due to bradycardia; stopped Coumadin by himself as outpatient, may need to be restarted on AC at discharge; Qualifiers: Atrial fibrillation type: paroxysmal Qualified Code(s): I48.0 - Paroxysmal atrial fibrillation (7) CKD (chronic kidney disease) Current Visit: Yes Status: Chronic Assessment and plan: GFR at baseline; avoid new nephrotoxins; Qualifiers: Chronic kidney disease stage: stage 3 (moderate) Qualified Code(s): N18.3 - Chronic kidney disease, stage 3 (moderate) (8) Diabetes mellitus Current Visit: Yes Status: Chronic Assessment and plan: blood sugars well-controlled; Accucheck blood glucose monitoring with sliding scale insulin as needed; diabetic diet; Qualifiers: Diabetes mellitus type: type 2 Diabetes mellitus terminal superintendent insulin use: without halfway use Diabetes mellitus complication status: without complication Qualified Code(s): E11.9 - Type 2 diabetes mellitus without complications (9) VENKATESH (obstructive sleep apnea) Current Visit: Yes Status: Chronic Assessment and plan: noncompliant with regular use of CPAP; - Time Spent With Patient Total time spent is greater than 50% in coordination of care (as documented) at patient's floor/unit and/or counseling patient: - Subjective Interval history: Feels better; no chest pain, shortness of breath, dizziness, weakness; underwent LHC yesterday; awaiting PPM placement today; - Constitutional Vitals: Temp Pulse Resp BP Pulse Ox 98.4 F 120 14 129/86 97 09/29/17 10:55 09/29/17 14:28 09/29/17 10:55 09/29/17 10:55 09/29/17 08:05 General appearance: Present: A&O X 3 - Respiratory Respiratory exam: Present: CTAB. Absent: accessory muscle use, rales, rhonchi, wheezes - Cardiovascular Cardiovascular exam: Present: RRR, +S1, +S2. Absent: diastolic murmur, gallop, rubs, systolic murmur - GI/Abdominal GI/Abdominal exam: Present: normal bowel sounds, soft, no peritoneal signs. Absent: distended, tenderness - Extremities Exam Extremities exam: Present: full ROM, warm, radial pulses palpable and symmetrical. Absent: calf tenderness, cyanotic, pedal edema - Neurological Exam Neurological exam: Present: CN II-XII intact, oriented X3, no focal deficits. Absent: pronater drift, facial droop, speech deficit Internal Medicine: Result - Labs CBC & Chem 7: 09/29/17 05:55 09/29/17 05:55 Labs: Short CBC 09/29/17 Range/Units 05:55 WBC 11.6 H (4.3-11.1) K/mcL Hgb 13.2 (12.9-16.9) g/dL Hct 37.9 (37.5-50.1) % Plt Count 258 (140-400) K/mcL Neutrophils # 9.0 H (1.6-8.9) K/mcL BMP 09/29/17 05:55 Sodium 139 Potassium 4.4 Chloride 111 H Carbon Dioxide 19 L BUN 15 Creatinine 1.22 Glucose 138 H Calcium 9.5 - ABG Interpretation ABG results: PT/INR, D-dimer PT 11.7 Seconds (9.4-12.1) 09/28/17 00:41 Consult Discharge Plan - Plan Referrals: Bertha Plunkett MD [Partnered Physician] - (Patient to call and schedule appointment so they can give him the instructions) Lola Whiteside, FREIGHT INSPECTOR [Primary Care Provider] - 10/08/17 10:30 am
[2017-09-29 15:44] VITALS: BP 134/81
--- NOTE | 2017-09-29 16:10 | Discharge Summary ---
- NOTES TO OUTPATIENT PROVIDER Notes to Outpatient Provider: D/C on Holter monitor for bradycardia and Mobitz Type 2 AV block; Cardizem stopped; to discuss anticoagulation for PAF Orders not resulted at time of discharge: Pending orders 09/28/17 11:22 CL Cardiac Catheterization [CL] Routine 09/30/17 04:00 Basic Metabolic Panel AM 0400 Complete Blood Count [HEME] AM 0400 10/01/17 04:00 Basic Metabolic Panel AM 0400 Complete Blood Count [HEME] AM 0400 Date of Encounter: 09/29/17 Time of Encounter: 16:08 - Discharge Diagnosis (1) Symptomatic bradycardia Priority: Primary Status: Acute (2) Mobitz (type) II atrioventricular block Priority: Primary Status: Acute (3) HTN (hypertension) Priority: Secondary Status: Chronic Qualifiers: Hypertension type: essential hypertension Qualified Code(s): I10 - Essential (primary) hypertension (4) COPD (chronic obstructive pulmonary disease) Priority: Secondary Status: Chronic Qualifiers: COPD type: emphysema Emphysema type: unspecified Qualified Code(s): J43.9 - Emphysema, unspecified (5) Coronary artery disease Priority: Secondary Status: Chronic Qualifiers: Coronary Disease-Associated Artery/Lesion type: [place] artery [place] vs. transplanted heart: [place] heart Associated angina: without angina Qualified Code(s): I25.10 - Atherosclerotic heart disease of [place] coronary artery without angina pectoris (6) Atrial fibrillation Priority: Secondary Status: Chronic Qualifiers: Atrial fibrillation type: paroxysmal Qualified Code(s): I48.0 - Paroxysmal atrial fibrillation (7) CKD (chronic kidney disease) Priority: Secondary Status: Chronic Qualifiers: Chronic kidney disease stage: stage 3 (moderate) Qualified Code(s): N18.3 - Chronic kidney disease, stage 3 (moderate) (8) Diabetes mellitus Priority: Secondary Status: Chronic Qualifiers: Diabetes mellitus type: type 2 Diabetes mellitus jail insulin use: without jail use Diabetes mellitus complication status: without complication Qualified Code(s): E11.9 - Type 2 diabetes mellitus without complications (9) VENKATESH (obstructive sleep apnea) Priority: Secondary Status: Chronic (10) Laryngeal cancer Priority: Secondary Status: Chronic Hospital course: Mr. Mar is a 71 year old male with the above medical problems including recently diagnosed laryngeal cancer, was initially admitted with chest pain, weakness and dizziness. He was noted to have symptomatic bradycardia. Further evaluation of EKGs and telemetry monitoring revealed Mobitz type II AV block, blocked PACs. Cardiology was consulted, patient underwent left heart catheterization, which was nonobstructive, received no intervention. EP cardiology was consulted, pacemaker placement was initially planned but currently deferred with recommendations for outpatient Holter monitoring, to correlate events with symptoms. Patient is noted to have paroxysmal atrial fibrillation, he was supposed to be on anticoagulation with Coumadin which he stopped by himself as an outpatient. He does need to be restarted on anticoagulation, this will be discussed during his outpatient cardiology visits. He is noted to be noncompliant with regular use of CPAP, he is encouraged to use it every night. Patient is extremely anxious to be discharged today and is cleared by Cardiology for outpatient f/up. Discharge discussed with: patient, nurse - Time Spent with Patient Total time spent providing and/or coordinating discharge services: Greater than 30 minutes (45 min) - Discharge Medications Home Medications: Aspirin Enteric Coated [Aspirin EC] 81 mg PO QAM 01/24/15 [History] Albuterol Sulfate [Ventolin Hfa] 2 puff IH Q4H PRN 09/15/17 [History] Cilostazol [Pletal] 100 mg PO BID 09/15/17 [History] Clopidogrel [Plavix] 75 mg PO DAILY 09/15/17 [History] Glimepiride [Amaryl] 2 mg PO DAILY 09/15/17 [History] Liraglutide [Victoza 3-Rich] 1.2 unit IJ DAILY 09/15/17 [History] Sitagliptin Phosphate [Januvia] 50 mg PO DAILY 09/15/17 [History] Tamsulosin HCl [Flomax] 0.4 mg PO DAILY 09/15/17 [History] amLODIPine [Norvasc] 5 mg PO DAILY 09/15/17 [History] Cyanocobalamin (Vitamin B-12) [Vitamin B12] 1,000 mcg PO QWEEK 09/28/17 [History ] Ergocalciferol (VITAMIN D2) [Vitamin D2] 50,000 unit PO QWEEK 09/28/17 [History] Ferrous Sulfate [Iron] 325 mg PO DAILY 09/28/17 [History] Losartan Potassium [Cozaar] 100 mg PO DAILY 09/28/17 [History] Lovastatin 40 mg PO DAILY 09/28/17 [History] Omeprazole [PriLOSEC] 20 mg PO DAILY 09/28/17 [History] Allergies/Adverse Reactions: 3 Allergy/AdvReac Type Severity Reaction Status Date / Time Penicillins Allergy Rash Verified 09/28/17 09:28 Date of admission: 09/27/17 22:55 Primary care physician: Lola Whiteside CNP Consults: 09/29/17 12:44 Consult to Electrophysiology (EP) [CONS] Routine Consulting Provider: Electrophysiology [facility] Reason for Consult: AV block Call Completed: Yes Discharging clinician: Lainey Garza Anticipated date of discharge: 09/29/17 - Constitutional Vitals: Temp Pulse Resp BP Pulse Ox 97.6 F 98 16 134/81 98 09/29/17 15:41 09/29/17 15:41 09/29/17 15:41 09/29/17 15:41 09/29/17 15:41 General appearance: Present: A&O X 3, answers questions appropriately - Cardiovascular Cardiovascular exam: Present: RRR, +S1, +S2. Absent: diastolic murmur, gallop, rubs, systolic murmur - Patient Status Disposition: Home, Self-Care Condition: Good Functional capacity at discharge: independent ambulation Overall status at discharge: patient is progressing back to baseline - Discharge Instructions Instructions: Coronary Artery Disease (DC), Holter Monitoring (DC), Bradycardia (GEN) Follow Up With: Bertha Plunkett MD [Partnered Physician] - 10/06/17 9:15 am () Chilo Garg MD [Partnered Physician] - (2 weeks ) Lola Whiteside CNP [Primary Care Provider] - 10/08/17 10:30 am Additional Instructions: F/up with EP Cardiology in 1 week - Diet and Activity Activity: resume usual activities as tolerated, other (wear CPAP at night; Holter monitor per Cardiology) Diet: diabetic diet, low fat, low cholesterol, low salt diet
== END 2017-09-29 18:58 | disposition home or self-care (01) ==
LOC: EMEROO 20:34 → 2NNU 20:34 → SUATTDRO 22:55 → 2NNU 23:50
PROVIDERS: ADMIT Pediatrics; ATTEND Internal Medicine

== ENCOUNTER 2021-06-12 14:05 | Inpatient (IN) ==
[2021-06-12] MEDS ORDERED: Naloxone 0.4 MG/ML INJ IVP PRN (17:23)
[2021-06-12] MEDS ORDERED: Perflutren Lipid Microsphere 1.3 ML in 0.9 % Sodium Chloride 8.7 ML IVP PRN (19:09)
[2021-06-12] MEDS ORDERED: Nitroglycerin 0.4 MG TAB.SUBL SL PRN (19:19)
[2021-06-12] MEDS: cilostazoL 100 MG TABLET PO SCH (22:18)
[2021-06-12] MEDS: Apixaban 5 MG TABLET PO SCH (22:18)
[2021-06-12] MEDS: Gabapentin 300 MG CAPSULE PO SCH (22:18)
[2021-06-13 05:33] LABS: Hematocrit 41.8 % (37.5-50.1); Hemoglobin 13.6 g/dL (12.9-16.9); Mean Corpuscular HGB Conc 32.5 g/dL (31.6-35.5); Mean Corpuscular Hemoglobin 29.2 pg (28.0-33.3); Mean Corpuscular Volume 89.7 fL (83.0-100.0); Mean Platelet Volume 9.4 fL (9.4-12.4); Platelet Count 252 K/mcL (140-400); Red Blood Count 4.66 M/mcL (4.19-5.50); Red Cell Distribution Width 16.2 % (11.5-14.5); White Blood Count 8.5 K/mcL (4.3-11.1)
[2021-06-13 05:53] LABS: Calcium 9.4 mg/dL (8.6-10.3); Magnesium 2.3 mg/dL (1.6-2.6); Phosphorous 3.1 mg/dL (2.7-4.5); Potassium 3.8 mEq/L (3.5-5.1)
[2021-06-13] MEDS: Levothyroxine 25 MCG TABLET PO SCH (06:10)
[2021-06-13] MEDS ORDERED: amLODIPine 5 MG TABLET PO SCH (09:00)
[2021-06-13] MEDS ORDERED: *HR* Heparin 5,000 UNIT/ML VIAL IVP ONE (11:02)
[2021-06-13] MEDS ORDERED: *HR* Heparin 5,000 UNIT/ML VIAL IVP PRN (11:02)
[2021-06-13] MEDS ORDERED: Spironolactone 25 MG TABLET PO SCH (11:15)
[2021-06-13] MEDS: Loratadine 10 MG TABLET PO SCH (11:44)
[2021-06-13] MEDS: Gabapentin 300 MG CAPSULE PO SCH ×2 (11:44→20:06)
[2021-06-13] MEDS: cilostazoL 100 MG TABLET PO SCH ×2 (11:44→20:06)
[2021-06-13] MEDS: Heparin 25,000UNIT/250ML 1/2NS 25,000 UNIT/250 ML IV.SOLN IVC SCH (11:46)
[2021-06-13] MEDS: (Anoro Ellipta 62.5-2) IH SCH (11:48)
[2021-06-13 11:55] LABS: INR 1.4; Prothrombin Time 15.7 Seconds (9.4-12.1)
[2021-06-13] MEDS: Apixaban 5 MG TABLET PO SCH (11:56)
[2021-06-13 11:57] LABS: Activated Partial Thrombo Time 31.9 Seconds (26.0-36.0)
[2021-06-13 12:08] LABS: Heparin anti-factor XA UFH 1.35 IU/mL (0.30-0.70)
[2021-06-13] MEDS ORDERED: Furosemide 20 MG/2 ML VIAL IVP SCH (13:00)
[2021-06-13] MEDS: Aspirin 81 MG TAB.CHEW PO SCH (16:36)
[2021-06-13] MEDS: carvediloL 6.25 MG TABLET PO SCH (16:36)
[2021-06-13] MEDS: *HR* Heparin 5,000 UNIT/ML VIAL IVP PRN (20:04)
[2021-06-13] MEDS: Melatonin 3 MG TABLET PO PRN (20:06)
[2021-06-13] MEDS: Ranolazine 500 MG TAB.ER.12H PO SCH (20:07)
[2021-06-14 01:47] LABS: Hematocrit 36.9 % (37.5-50.1); Hemoglobin 12.3 g/dL (12.9-16.9); Mean Corpuscular HGB Conc 33.3 g/dL (31.6-35.5); Mean Corpuscular Hemoglobin 29.6 pg (28.0-33.3); Mean Corpuscular Volume 88.7 fL (83.0-100.0); Mean Platelet Volume 9.6 fL (9.4-12.4); Platelet Count 230 K/mcL (140-400); Red Blood Count 4.16 M/mcL (4.19-5.50); Red Cell Distribution Width 16.1 % (11.5-14.5); White Blood Count 6.7 K/mcL (4.3-11.1)
[2021-06-14 02:25] LABS: Calcium 8.7 mg/dL (8.6-10.3); Potassium 4.4 mEq/L (3.5-5.1)
[2021-06-14] MEDS: Levothyroxine 25 MCG TABLET PO SCH (05:49)
[2021-06-14] MEDS: Heparin 25,000UNIT/250ML 1/2NS 25,000 UNIT/250 ML IV.SOLN IVC SCH (05:49)
[2021-06-14] MEDS ORDERED: Albumin 25% 25gram/100mL 25 GM/100 ML IV.SOLN IVPB ONE (08:26)
[2021-06-14] MEDS ORDERED: Furosemide 20 MG TABLET PO SCH (09:00)
[2021-06-14] MEDS: cilostazoL 100 MG TABLET PO SCH ×2 (09:07→21:04)
[2021-06-14] MEDS: Gabapentin 300 MG CAPSULE PO SCH ×3 (09:07→21:04)
[2021-06-14] MEDS: Ranolazine 500 MG TAB.ER.12H PO SCH ×2 (09:07→21:04)
[2021-06-14] MEDS: carvediloL 6.25 MG TABLET PO SCH ×2 (09:07→16:47)
[2021-06-14] MEDS: Aspirin 81 MG TAB.CHEW PO SCH (09:07)
[2021-06-14] MEDS: Loratadine 10 MG TABLET PO SCH (09:07)
[2021-06-14] MEDS: (Anoro Ellipta 62.5-2) IH SCH (09:47)
[2021-06-14] MEDS: *HR* Heparin 5,000 UNIT/ML VIAL IVP PRN (11:23)
[2021-06-14] MEDS ORDERED: Dextrose Gel 15 GM/37.5 ML TUBE PO PRN ×2 (11:32)
[2021-06-14] MEDS ORDERED: *HR* Dextrose 50 % in Water (Syg) 50 ML SYRINGE IVP PRN (11:32)
[2021-06-14] MEDS ORDERED: D5% in Water 1,000 ML IVC PRN (11:32)
[2021-06-14] MEDS: Insulin LISPRO 300 UNITS/3 ML VIAL SUBQ SCH ×2 (12:39→16:48)
[2021-06-14] MEDS: Insulin DETEMIR 100 UNIT/ML X5UNITS SUBQ SCH ×2 (14:22→21:00)
[2021-06-14] MEDS: Apixaban 5 MG TABLET PO SCH (21:04)
[2021-06-14] MEDS: Melatonin 3 MG TABLET PO PRN (21:04)
[2021-06-15 02:12] LABS: Hematocrit 34.9 % (37.5-50.1); Mean Corpuscular Volume 88.1 fL (83.0-100.0); Mean Platelet Volume 9.9 fL (9.4-12.4); Platelet Count 225 K/mcL (140-400); Red Blood Count 3.96 M/mcL (4.19-5.50); Red Cell Distribution Width 15.7 % (11.5-14.5); White Blood Count 6.7 K/mcL (4.3-11.1)
[2021-06-15 02:13] LABS: Hemoglobin 11.5 g/dL (12.9-16.9)
[2021-06-15 02:23] LABS: Potassium 4.3 mEq/L (3.5-5.1)
[2021-06-15] MEDS: Levothyroxine 25 MCG TABLET PO SCH (05:45)
[2021-06-15] MEDS: (Anoro Ellipta 62.5-2) IH SCH (07:13)
[2021-06-15 07:27] VITALS: TEMP 97.5
[2021-06-15] MEDS: Insulin LISPRO 300 UNITS/3 ML VIAL SUBQ SCH ×2 (09:16→11:38)
[2021-06-15] MEDS: carvediloL 6.25 MG TABLET PO SCH (09:17)
[2021-06-15] MEDS: Aspirin 81 MG TAB.CHEW PO SCH (09:17)
[2021-06-15] MEDS: Gabapentin 300 MG CAPSULE PO SCH (09:17)
[2021-06-15] MEDS: Apixaban 5 MG TABLET PO SCH (09:17)
[2021-06-15] MEDS: cilostazoL 100 MG TABLET PO SCH (09:17)
[2021-06-15] MEDS: Ranolazine 500 MG TAB.ER.12H PO SCH (09:17)
[2021-06-15] MEDS: Loratadine 10 MG TABLET PO SCH (09:17)
[2021-06-15 11:10] VITALS: BP 121/67; PULSE 69; O2SAT 98
== END 2021-06-15 14:38 | disposition home or self-care (01) | DRG 280 ==
LOC: 3BNU
PROVIDERS: ADMIT Internal Medicine; ATTEND Internal Medicine